=== PATIENT | female | born 1960 | race Caucasian/White ===

== ENCOUNTER → 2016-12-27 | Outpatient (CLI) | payer OTHER ==
--- NOTE | 2016-12-27 15:58 | BD ---
EXAMINATION TYPE: MG DEXA axial skeleton. DATE OF EXAM: 12/27/2016 COMPARISON: NONE CLINICAL HISTORY: 56-year-old female postmenopausal Height: 60 Weight: 96.8 FRAX RISK QUESTIONS: Alcohol (3 or more units per day): NO Family History (Parent hip fracture): NO Glucocorticoids (More than 3mos): NO (Ex: prednisone, prednisolone, methylprednisolone, dexamethasone, and hydrocortisone). History of Fracture in Adulthood: NO Secondary Osteoporosis: 1. Type 1 Diabetes: NO 2. Hyperthyroidism: NO 3. Menopause before 45: NO 4. Malnutrition: NO 5. Chronic liver disease: NO Rheumatoid Arthritis: NO Current Tobacco Use: YES RISK FACTORS HISTORY OF: Hip Fracture (Right/Left): NO Spine Fracture: NO History of Wrist Fracture: NO Surgery to Spine/Hip(right/left)/Wrist (right/left): NO Family History of Osteoporosis: NO Active: YES Diet low in dairy products/other sources of calcium: YES Postmenopausal woman: AGE 52 Lost more than 2 inches in height since high school: NO Frequent falls: NO Poor Health: NO Hyperparathyroidism: NO Adrenal Insufficiency: NO MEDICATIONS: SYMBICORT Thyroid Medications: How Lon-20 YEARS Additional History: EXAM MEASUREMENTS: Bone mineral densitometry was performed using the [employer] System. Bone mineral density as measured about the Lumbar spine is: ----- L1-L4(G/cm2): 0.795 T Score Values are as follows: ----- L2: -3.7 ----- L3: -3.4 ----- L4: -2.6 ----- L1-L4: -3.2 Bone mineral density BASELINE Bone mineral density about the R hip (g/cm2): 0.599 Bone mineral density about the L hip (g/cm2): 0.611 T Score values are as follows: -----R Neck: -3.2 -----L Neck: -3.1 -----R Total: -3.9 -----L Total: -3.7 Bone mineral density BASELINE IMPRESSION: Osteoporosis (T Score less than -2.5) as noted by T Score values at the There is increased fracture risk and therapy is usually indicated based on age. Re-Screen 1-2 years. NOTE: T-SCORE=SD OF THE YOUNG ADULT MEAN.
--- NOTE | 2016-12-30 08:22 | MM ---
Reason for exam: screening (asymptomatic). Last mammogram was performed 11 years and 4 months ago. History: Patient is postmenopausal. Physical Findings: A clinical breast exam by your physician is recommended on an annual basis and results should be correlated with mammographic findings. MG Screening Mammo w CAD Bilateral CC and MLO view(s) were taken. Prior study comparison: August 12, 2005, bilateral screening mammogram w/CAD. The breast tissue is extremely dense which could obscure a lesion on mammography. Benign calcifications. There is no discrete abnormality. No significant changes when compared with prior studies. ASSESSMENT: Benign, BI-RAD 2 RECOMMENDATION: Routine screening mammogram of both breasts in 1 year.
== END | disposition home or self-care (01) ==
LOC: RADMAMWWP 09:23
PROVIDERS: ATTEND Family Medicine
DX: Z12.31 Encounter for screening mammogram for malignant neoplasm of breast (principal); M81.0 Age-related osteoporosis without current pathological fracture; Z78.0 Asymptomatic menopausal state
CPT/HCPCS: 77080; G0202

== ENCOUNTER → 2018-01-05 | Outpatient (CLI) | payer OTHER ==
--- NOTE | 2018-01-07 11:04 | MM ---
Reason for exam: screening (asymptomatic). Last mammogram was performed 1 year ago. History: Patient is postmenopausal. Physical Findings: A clinical breast exam by your physician is recommended on an annual basis and results should be correlated with mammographic findings. MG 3D Screening Mammo W/Cad Bilateral CC and MLO view(s) were taken. Prior study comparison: December 27, 2016, bilateral MG screening mammo w CAD. August 12, 2005, bilateral screening mammogram w/CAD. The breast tissue is extremely dense which could obscure a lesion on mammography. No suspicious abnormality. No significant changes when compared with prior studies. ASSESSMENT: Negative, BI-RAD 1 RECOMMENDATION: Routine screening mammogram of both breasts in 1 year.
== END | disposition home or self-care (01) ==
LOC: RADMAMWWP 12:56
PROVIDERS: ATTEND Family Medicine
DX: Z12.31 Encounter for screening mammogram for malignant neoplasm of breast (principal)
CPT/HCPCS: 77063; 77067

== ENCOUNTER → 2019-01-26 | Outpatient (CLI) | payer OTHER ==
--- NOTE | 2019-01-28 09:57 | MM ---
Reason for exam: screening (asymptomatic). Last mammogram was performed 1 year and 1 month ago. History: Patient is postmenopausal. Physical Findings: A clinical breast exam by your physician is recommended on an annual basis and results should be correlated with mammographic findings. MG 3D Screening Mammo W/Cad Bilateral CC and MLO view(s) were taken. Prior study comparison: January 05, 2018, bilateral MG 3d screening mammo w/cad. December 27, 2016, bilateral MG screening mammo w CAD. The breast tissue is extremely dense which could obscure a lesion on mammography. Benign appearing vascular calcifications. No suspicious abnormality. No significant changes when compared with prior studies. ASSESSMENT: Benign, BI-RAD 2 RECOMMENDATION: Routine screening mammogram of both breasts in 1 year.
== END | disposition home or self-care (01) ==
LOC: RADMAMWWP 15:01
PROVIDERS: ATTEND Family Medicine
DX: Z12.31 Encounter for screening mammogram for malignant neoplasm of breast (principal)
CPT/HCPCS: 77063; 77067

== ENCOUNTER → 2022-03-07 | Outpatient (CLI) | payer OTHER ==
--- NOTE | 2022-03-08 07:56 | MM ---
Reason for Exam: Screening (asymptomatic). Last mammogram was performed 3 year(s) and 1 month(s) ago. Patient History: Menarche at age 12. First Full-Term at age 26. Postmenopausal. Risk Values: Jenni 5 year model risk: 1.7%. NCI Lifetime model risk: 7.7%. Prior Study Comparison: 12/27/2016 Bilateral Screening Mammogram, [facility]. 01/05/2018 Bilateral Screening Mammogram, [facility]. 01/26/2019 Bilateral Screening Mammogram, [facility]. Tissue Density: The breast tissue is heterogeneously dense. This may lower the sensitivity of mammography. Findings: Analyzed By CAD. New nodular density far posterior left MLO view 5.4 cm from the nipple not confirmed on the CC view. Additional views are recommended. Vascular calcifications noted bilaterally. Overall Assessment: Incomplete: need additional imaging evaluation, BI-RAD 0 Management: Diagnostic Mammogram of the left breast. A clinical breast exam by your physician is recommended on an annual basis and results should be correlated with mammographic findings. Electronically signed and approved by: Ranjit Mccabe M.D. Radiologis
== END | disposition home or self-care (01) ==
LOC: RADMAMWWP 16:26
PROVIDERS: ATTEND Family Medicine
DX: Z12.31 Encounter for screening mammogram for malignant neoplasm of breast (principal); Z78.0 Asymptomatic menopausal state
CPT/HCPCS: 77063; 77067

== ENCOUNTER → 2022-03-12 | Outpatient (CLI) | payer OTHER ==
--- NOTE | 2022-03-12 13:04 | MM ---
Reason for Exam: Additional evaluation requested from abnormal screening. Last screening mammogram was performed less than 1 month ago. Patient History: Menarche at age 12. First Full-Term at age 26. Postmenopausal. Risk Values: Jenni 5 year model risk: 1.7%. NCI Lifetime model risk: 7.7%. Prior Study Comparison: 01/05/2018 Bilateral Screening Mammogram, [facility]. 01/26/2019 Bilateral Screening Mammogram, [facility]. 03/07/2022 Bilateral MG 3D screening mammo w/cad, [facility]. Tissue Density: Left: The breast tissue is extremely dense which could obscure a lesion on mammography. Findings: Analyzed By CAD. Nodular density persists although is partially viewed on the additional spot images. Ultrasound is advised. Overall Assessment: Incomplete: need additional imaging evaluation, BI-RAD 0 Management: Diagnostic Breast Ultrasound of the left breast. A clinical breast exam by your physician is recommended on an annual basis and results should be correlated with mammographic findings. This exam should not preclude additional follow-up of suspicious palpable abnormalities. Results were given to the patient verbally at the time of exam. Electronically signed and approved by: Ranjit Mccabe M.D. Radiologis
--- NOTE | 2022-03-12 14:58 | USB ---
Reason for Exam: Additional evaluation requested from abnormal screening. Patient History: Menarche at age 12. First Full-Term at age 26. Postmenopausal. Risk Values: Jenni 5 year model risk: 1.7%. NCI Lifetime model risk: 7.7%. Technique: Method: Targeted. Prior Study Comparison: 01/05/2018 Bilateral Screening Mammogram, [facility]. 01/26/2019 Bilateral Screening Mammogram, [facility]. 03/07/2022 Bilateral MG 3D screening mammo w/cad, [facility]. Findings: The upper outer quadrant of the left breast, the axilla of the left breast and the retroareolar of the left breast were scanned. No solid or cystic masses are identified.. Overall Assessment: Negative, BI-RAD 1 Management: Screening Mammogram of both breasts in 1 year. A clinical breast exam by your physician is recommended on an annual basis and results should be correlated with mammographic findings. Electronically signed and approved by: Ranjit Mccabe M.D. Radiologis
== END | disposition home or self-care (01) ==
LOC: RADMAMWWP 12:34
PROVIDERS: ATTEND Family Medicine
DX: R92.8 Other abnormal and inconclusive findings on diagnostic imaging of breast (principal)
CPT/HCPCS: 77065; 76642; G0279; 77061

== ENCOUNTER 2022-04-13 11:01 | Emergency (ER) | payer OTHER ==
[2022-04-13 11:15] VITALS: TEMP 98.4
--- NOTE | 2022-04-13 11:26 | ED ---
Upper Extremity HPI - General Chief Complaint: Extremity Injury, Upper Stated Complaint: lt wrist injury Time Seen by Provider: 04/13/22 11:09 Source: patient, RN notes reviewed Mode of arrival: ambulatory Limitations: no limitations - History of Present Illness Initial Comments: 61-year-old female presents emergency from chief complaint of trip and fall. Patient states she tripped over her dog stepped last night states that she fell onto her left wrist. No head injury or loss conscious. Patient is right-hand dominant commands left wrist pain worse with any movement patient states that she has not one morning for the pain states she has not taken any prior to hear she does complain of mild swelling no paresthesias. - Related Data Allergies Allergy/AdvReac Type Severity Reaction Status Date / Time No Known Allergies Allergy Verified 04/13/22 11:14 Review of Systems ROS Statement: Those systems with pertinent positive or pertinent negative responses have been documented in the HPI. ROS Other: All systems not noted in ROS Statement are negative. Past Medical History Past Medical History: Asthma, COPD History of Any Multi-Drug Resistant Organisms: None Reported Past Surgical History: No Surgical Hx Reported Past Psychological History: No Psychological Hx Reported Smoking Status: Current every day smoker Past Alcohol Use History: None Reported Past Drug Use History: None Reported General Exam Limitations: no limitations General appearance: alert, in no apparent distress Head exam: Present: atraumatic, normocephalic, normal inspection Respiratory exam: Present: normal lung sounds bilaterally. Absent: respiratory distress, wheezes, rales, rhonchi, stridor Cardiovascular Exam: Present: regular rate, normal rhythm, normal heart sounds. Absent: systolic murmur, diastolic murmur, rubs, gallop, clicks Extremities exam: Present: other (Left wrist there is mild tenderness of the distal radius and ulna, neurovascular intact with cap refill less than 2 seconds pain with range of motion no proximal forearm tenderness) Course Vital Signs 04/13/22 04/13/22 11:11 12:29 Temperature 98.4 F Pulse Rate 93 68 Respiratory 20 16 Rate Blood Pressure 151/84 135/78 O2 Sat by Pulse 93 L 96 Oximetry - Reevaluation(s) Reevaluation #1: 04/13/22 11:24 Patient's declines pain meds. Medical Decision Making - Medical Decision Making X-ray does not show definite fracture though patient has some snuffbox tenderness. Patient was splinted to follow-up with orthopedics. Disposition Clinical Impression: Left wrist injury, Fracture of scaphoid Disposition: HOME SELF-CARE Condition: Stable Instructions (If sedation given, give patient instructions): Suspected Fracture (ED) Additional Instructions: Please return to the Emergency Department if symptoms worsen or any other concerns. Is patient prescribed a controlled substance at d/c from ED?: No Referrals: Errol Caldera MD [Primary Care Provider] - 1-2 days Valerie Bonds DO [Doctor of Osteopathic Medicine] - 1-2 days Time of Disposition: 13:37
[2022-04-13 12:31] VITALS: PULSE 68; RESP 16
[2022-04-13 13:50] VITALS: BP 110/60
--- NOTE | 2022-04-13 14:29 | XR ---
EXAMINATION TYPE: TEMPORARY DATE OF EXAM: 04/13/2022 COMPARISON: None HISTORY: Pain from fall TECHNIQUE: 4 view left wrist FINDINGS: No acute fractures or dislocations are evident. There may be an old avulsion at the mid uln ar styloid. Secondary ossification center could be present. Follow-up studies can be performed 7-10 days from acute trauma for continued pain. If there is pain a nd snuffbox, nuclear medicine bone scan could be performed. IMPRESSION: 1. No acute osseous abnormality left wrist. Follow-up as clinically indicated.
== END 2022-04-13 13:49 | disposition home or self-care (01) ==
LOC: EC 11:01
DX: S62.002A Unspecified fracture of navicular [scaphoid] bone of left wrist, initial encounter for closed fracture (principal); J45.909 Unspecified asthma, uncomplicated; J44.9 Chronic obstructive pulmonary disease, unspecified; F17.200 Nicotine dependence, unspecified, uncomplicated; W01.0XXA Fall on same level from slipping, tripping and stumbling without subsequent striking against object, initial encounter
CPT/HCPCS: 99284

== ENCOUNTER 2022-04-21 17:24 | Inpatient (IN) | payer OTHER ==
--- NOTE | 2022-04-21 17:45 | ED ---
SOB HPI - General Chief Complaint: Shortness of Breath Stated Complaint: FLOYD Time Seen by Provider: 04/21/22 17:30 Source: patient Mode of arrival: wheelchair Limitations: no limitations - History of Present Illness Initial Comments: This patient is 61-year-old woman presenting to have evaluation for shortness of breath. She has been having worsening of her usual COPD symptoms going back 2 days now. She has not noted fever or chills. She has not noted a change in sputum. She has occasional nonproductive cough. No hemoptysis. Patient does have some upper chest discomfort. She has not noted associated nausea, vomiting, diaphoresis, palpitations or syncope. Patient states that she tried using her home inhaled medication but just wasn't providing any relief. She does not use home oxygen MD Complaint: shortness of breath, cough -: days(s) Consistency: constant Improves With: nothing Worsens With: nothing Known History Of: COPD Associated Symptoms: denies other symptoms - Related Data Home Medications Medication Instructions Recorded Confirmed Albuterol Sulfate [Proair Hfa] 2 puff INHALATION RT-Q6H PRN 04/21/22 04/21/22 Ergocalciferol (Vitamin D2) 1,250 mcg PO QMONTHLY 04/21/22 04/21/22 [Drisdol (50,000 Iu)] Fluticasone/Umeclidin/Vilanter 1 puff INHALATION RT-DAILY 04/21/22 04/21/22 [Trelegy Ellipta 100-62.5-25] Ibuprofen [Motrin] 800 mg PO QID PRN 04/21/22 04/21/22 Levothyroxine Sodium [Synthroid] 137 mcg PO DAILY 04/21/22 04/21/22 Allergies Allergy/AdvReac Type Severity Reaction Status Date / Time No Known Allergies Allergy Verified 04/21/22 18:57 Review of Systems ROS Statement: Those systems with pertinent positive or pertinent negative responses have been documented in the HPI. ROS Other: All systems not noted in ROS Statement are negative. Constitutional: Denies: fever, chills, weakness Respiratory: Reports: cough, dyspnea, wheezes. Denies: hemoptysis, stridor Cardiovascular: Reports: chest pain. Denies: palpitations, orthopnea, edema, syncope Gastrointestinal: Denies: abdominal pain, nausea, vomiting, diarrhea Genitourinary: Denies: dysuria, hematuria Musculoskeletal: Denies: back pain Skin: Denies: rash Neurological: Denies: headache, weakness, numbness Past Medical History Past Medical History: Asthma, COPD History of Any Multi-Drug Resistant Organisms: None Reported Past Surgical History: No Surgical Hx Reported Past Psychological History: No Psychological Hx Reported Smoking Status: Current every day smoker Past Alcohol Use History: None Reported Past Drug Use History: None Reported General Exam Limitations: no limitations General appearance: alert, in distress Head exam: Present: atraumatic, normocephalic Eye exam: Present: normal appearance. Absent: scleral icterus, conjunctival injection Neck exam: Present: normal inspection Respiratory exam: Present: respiratory distress, wheezes, accessory muscle use, decreased breath sounds. Absent: rales, rhonchi, stridor, chest wall tenderness Cardiovascular Exam: Present: normal rhythm, tachycardia, normal heart sounds. Absent: systolic murmur, diastolic murmur, rubs, gallop GI/Abdominal exam: Present: soft. Absent: distended, tenderness, guarding, rebound, rigid, mass Extremities exam: Present: normal inspection, normal capillary refill. Absent: pedal edema, calf tenderness Back exam: Present: normal inspection. Absent: CVA tenderness (R), CVA tenderness (L) Neurological exam: Present: alert Skin exam: Present: warm, dry, intact, normal color. Absent: rash Course Vital Signs 04/21/22 04/21/22 04/21/22 17:27 18:22 18:30 Temperature 97 F L Pulse Rate 123 H 115 H Respiratory 32 H 20 Rate Blood Pressure 107/68 O2 Sat by Pulse 88 L 95 Oximetry 04/21/22 04/21/22 04/21/22 18:38 18:51 20:24 Temperature Pulse Rate 118 H 115 H 114 H Respiratory 18 24 19 Rate Blood Pressure 96/69 96/64 O2 Sat by Pulse 97 96 Oximetry 04/21/22 04/21/22 22:30 23:05 Temperature Pulse Rate 112 H 112 H Respiratory 20 18 Rate Blood Pressure 94/64 91/71 O2 Sat by Pulse 100 99 Oximetry Medical Decision Making - Medical Decision Making Patient's 61-year-old woman presenting with dyspnea which appears to be due to a combination of factors that include exacerbation of COPD as well as right-sided spontaneous pneumothorax. Case is discussed with Dr. Polanco, covering Pulmonology service and patient will be admitted with consultations to CT surgery and cardiology as well. - Lab Data Result diagrams: 04/21/22 17:51 04/21/22 17:51 Lab Results 04/21/22 04/21/22 04/21/22 Range/Units 17:51 17:51 17:51 WBC 15.8 H (3.8-10.6) k/uL RBC 4.95 (3.80-5.40) m/uL Hgb 15.3 (11.4-16.0) gm/dL Hct 45.9 (34.0-46.0) % MCV 92.8 (80.0-100.0) fL MCH 30.9 (25.0-35.0) pg MCHC 33.3 (31.0-37.0) g/dL RDW 12.8 (11.5-15.5) % Plt Count 224 (150-450) k/uL MPV 9.4 Neutrophils % 86 % Lymphocytes % 7 % Monocytes % 5 % Eosinophils % 1 % Basophils % 0 % Neutrophils # 13.5 H (1.3-7.7) k/uL Lymphocytes # 1.1 (1.0-4.8) k/uL Monocytes # 0.8 (0-1.0) k/uL Eosinophils # 0.1 (0-0.7) k/uL Basophils # 0.1 (0-0.2) k/uL PT 10.4 (9.0-12.0) sec INR 0.9 (<1.2) APTT 23.8 (22.0-30.0) sec D-Dimer 1.14 H (<0.60) mg/L FEU VBG pH (7.31-7.41) VBG pCO2 (37-51) mmHg VBG HCO3 (24-28) mmol/L Sodium 136 L (137-145) mmol/L Potassium 4.8 (3.5-5.1) mmol/L Chloride 96 L (98-107) mmol/L Carbon Dioxide 31 H (22-30) mmol/L Anion Gap 9 mmol/L BUN 9 (7-17) mg/dL Creatinine 0.59 (0.52-1.04) mg/dL Est GFR (CKD-EPI)AfAm >90 (>60 ml/min/1.73 sqM) Est GFR (CKD-EPI)NonAf >90 (>60 ml/min/1.73 sqM) Glucose 220 H (74-99) mg/dL Lactic Ac Sepsis Rflx Plasma Lactic Acid Jacobo (0.7-2.0) mmol/L Calcium 8.6 (8.4-10.2) mg/dL Magnesium 1.8 (1.6-2.3) mg/dL Total Bilirubin 0.8 (0.2-1.3) mg/dL AST 61 H (14-36) U/L ALT 47 H (4-34) U/L Alkaline Phosphatase 99 (38-126) U/L Troponin I (0.000-0.034) ng/mL NT-Pro-B Natriuret Pep pg/mL Total Protein 7.2 (6.3-8.2) g/dL Albumin 4.4 (3.5-5.0) g/dL 04/21/22 04/21/22 04/21/22 Range/Units 17:51 17:51 17:51 WBC (3.8-10.6) k/uL RBC (3.80-5.40) m/uL Hgb (11.4-16.0) gm/dL Hct (34.0-46.0) % MCV (80.0-100.0) fL MCH (25.0-35.0) pg MCHC (31.0-37.0) g/dL RDW (11.5-15.5) % Plt Count (150-450) k/uL MPV Neutrophils % % Lymphocytes % % Monocytes % % Eosinophils % % Basophils % % Neutrophils # (1.3-7.7) k/uL Lymphocytes # (1.0-4.8) k/uL Monocytes # (0-1.0) k/uL Eosinophils # (0-0.7) k/uL Basophils # (0-0.2) k/uL PT (9.0-12.0) sec INR (<1.2) APTT (22.0-30.0) sec D-Dimer (<0.60) mg/L FEU VBG pH (7.31-7.41) VBG pCO2 (37-51) mmHg VBG HCO3 (24-28) mmol/L Sodium (137-145) mmol/L Potassium (3.5-5.1) mmol/L Chloride (98-107) mmol/L Carbon Dioxide (22-30) mmol/L Anion Gap mmol/L BUN (7-17) mg/dL Creatinine (0.52-1.04) mg/dL Est GFR (CKD-EPI)AfAm (>60 ml/min/1.73 sqM) Est GFR (CKD-EPI)NonAf (>60 ml/min/1.73 sqM) Glucose (74-99) mg/dL Lactic Ac Sepsis Rflx Plasma Lactic Acid Jacobo 3.5 H* (0.7-2.0) mmol/L Calcium (8.4-10.2) mg/dL Magnesium (1.6-2.3) mg/dL Total Bilirubin (0.2-1.3) mg/dL AST (14-36) U/L ALT (4-34) U/L Alkaline Phosphatase (38-126) U/L Troponin I 0.826 H* (0.000-0.034) ng/mL NT-Pro-B Natriuret Pep 5770 pg/mL Total Protein (6.3-8.2) g/dL Albumin (3.5-5.0) g/dL 04/21/22 04/21/22 Range/Units 18:50 19:18 WBC (3.8-10.6) k/uL RBC (3.80-5.40) m/uL Hgb (11.4-16.0) gm/dL Hct (34.0-46.0) % MCV (80.0-100.0) fL MCH (25.0-35.0) pg MCHC (31.0-37.0) g/dL RDW (11.5-15.5) % Plt Count (150-450) k/uL MPV Neutrophils % % Lymphocytes % % Monocytes % % Eosinophils % % Basophils % % Neutrophils # (1.3-7.7) k/uL Lymphocytes # (1.0-4.8) k/uL Monocytes # (0-1.0) k/uL Eosinophils # (0-0.7) k/uL Basophils # (0-0.2) k/uL PT (9.0-12.0) sec INR (<1.2) APTT (22.0-30.0) sec D-Dimer (<0.60) mg/L FEU VBG pH 7.40 (7.31-7.41) VBG pCO2 49 (37-51) mmHg VBG HCO3 30 H (24-28) mmol/L Sodium (137-145) mmol/L Potassium (3.5-5.1) mmol/L Chloride (98-107) mmol/L Carbon Dioxide (22-30) mmol/L Anion Gap mmol/L BUN (7-17) mg/dL Creatinine (0.52-1.04) mg/dL Est GFR (CKD-EPI)AfAm (>60 ml/min/1.73 sqM) Est GFR (CKD-EPI)NonAf (>60 ml/min/1.73 sqM) Glucose (74-99) mg/dL Lactic Ac Sepsis Rflx Y Plasma Lactic Acid Jacobo (0.7-2.0) mmol/L Calcium (8.4-10.2) mg/dL Magnesium (1.6-2.3) mg/dL Total Bilirubin (0.2-1.3) mg/dL AST (14-36) U/L ALT (4-34) U/L Alkaline Phosphatase (38-126) U/L Troponin I (0.000-0.034) ng/mL NT-Pro-B Natriuret Pep pg/mL Total Protein (6.3-8.2) g/dL Albumin (3.5-5.0) g/dL - EKG Data -: EKG Interpreted by Me EKG shows normal: sinus rhythm, axis (Normal), intervals (Normal) Rate: tachycardia (Rate 111 bpm) Interpretation: other (Possible old anteroseptal infarct.) Critical Care Time Critical Care Time: Yes (35 minutes) Disposition Clinical Impression: Spontaneous pneumothorax, COPD exacerbation, NSTEMI (non-ST elevated myocardial infarction), Lactic acidosis Disposition: ADMITTED IP TO THIS [facility] Condition: Serious Is patient prescribed a controlled substance at d/c from ED?: No
[2022-04-21] MEDS ORDERED: IPRATROPIUM-ALBUTEROL 3 ML NEB INHALATION STA (17:52)
[2022-04-21] MEDS ORDERED: predniSONE 20 MG TAB PO STA (17:52)
[2022-04-21 18:11] LABS: Basophils # (A) 0.1 k/uL (0-0.2); Basophils % (A) 0 %; Eosinophils # (A) 0.1 k/uL (0-0.7); Eosinophils % (A) 1 %; HCT 45.9 % (34.0-46.0); HGB 15.3 gm/dL (11.4-16.0); Lymphocytes # (A) 1.1 k/uL (1.0-4.8); Lymphocytes % (A) 7 %; MCH 30.9 pg (25.0-35.0); MCHC 33.3 g/dL (31.0-37.0); MCV 92.8 fL (80.0-100.0); Mean Platelet Volume 9.4; Monocytes # (A) 0.8 k/uL (0-1.0); Monocytes % (A) 5 %; Neutrophils # (A) 13.5 k/uL (1.3-7.7); Neutrophils % (A) 86 %; Platelet Count 224 k/uL (150-450); RBC 4.95 m/uL (3.80-5.40); RDW 12.8 % (11.5-15.5); WBC 15.8 k/uL (3.8-10.6)
[2022-04-21 18:25] LABS: ALT 47 U/L (4-34); AST 61 U/L (14-36); African American GFR (CKD) >90 (>60 ml/min/1.73 sqM); Albumin 4.4 g/dL (3.5-5.0); Alkaline Phosphatase 99 U/L (38-126); Anion Gap 9 mmol/L; Blood Urea Nitrogen 9 mg/dL (7-17); Calcium 8.6 mg/dL (8.4-10.2); Carbon Dioxide 31 mmol/L (22-30); Chloride 96 mmol/L (98-107); Glucose 220 mg/dL (74-99); Magnesium 1.8 mg/dL (1.6-2.3); Non-African American GFR(CKD) >90 (>60 ml/min/1.73 sqM); Potassium 4.8 mmol/L (3.5-5.1); Sodium 136 mmol/L (137-145); Total Bilirubin 0.8 mg/dL (0.2-1.3); Total Protein 7.2 g/dL (6.3-8.2)
--- NOTE | 2022-04-21 18:46 | XR ---
EXAMINATION TYPE: XR chest 2V DATE OF EXAM: 04/21/2022 6:28 PM COMPARISON: No relevant priors TECHNIQUE: XR chest 2V . CLINICAL INDICATION:Female, 61 years old with history of difficulty breathing; FINDINGS: Lungs/Pleura: There is flattening of the diaphragm with increased lucency of the lungs. No evidence o f pneumothorax, pleural effusion or focal consolidation. 3 mm nodule projects over the right upper lo be. Pulmonary vascularity: Unremarkable. Heart/mediastinum: Cardiomediastinal silhouette is unremarkable. Musculoskeletal: Multiple level degenerative disc disease changes seen throughout the spine. IMPRESSION: 1. Emphysematous changes. No focal airspace consolidation. 2. Suspected 3 mm pulmonary nodule in the right lung, consider further evaluation with non-emergent C T chest.
[2022-04-21 18:48] LABS: INR 0.9 (<1.2); Partial Thromboplastin Time 23.8 sec (22.0-30.0); Prothrombin Time 10.4 sec (9.0-12.0)
[2022-04-21] MEDS ORDERED: AZITHROMYCIN 500 MG in SODIUM CHLORIDE 0.9% 250 ML IVPB STA (19:14)
[2022-04-21] MEDS ORDERED: SODIUM CHLORIDE 0.9% 500 ML 500 ML IV STA (19:15)
[2022-04-21] MEDS ORDERED: SODIUM CHLORIDE 0.9% 1,000 ML IV STA (19:15)
[2022-04-21 19:35] LABS: VBG PH 7.4 (7.31-7.41)
--- NOTE | 2022-04-21 20:00 | CT ---
EXAMINATION TYPE: CT chest angio for PE CT DLP: 172 mGycm, Automated exposure control for dose reduction was used. DATE OF EXAM: 04/21/2022 7:46 PM COMPARISON: Chest x-ray 04/21/2022 CLINICAL INDICATION:Female, 61 years old with history of dyspnea, possible PE; pe TECHNIQUE/CONTRAST: CTA scan of the thorax is performed with IV Contrast, patient injected with 80 mL of Isovue 370, pulm onary embolism protocol. MIP images are created and reviewed. FINDINGS: Pulmonary Artery: There is no evidence for a filling defect within the pulmonary vasculature to sugge st acute pulmonary embolism. The pulmonary artery is of normal size. Lungs/Pleura: Small right pneumothorax (less than 20%). Pleural displacement of approximately 9 mm at the right lung apex. Moderate to severe emphysematous changes. Numerous apical bullae and blebs are present bilaterally. No focal airspace consolidations. Airway: Large airways are patent. Heart: Heart is within normal limits for size.. Vasculature: No evidence of aortic aneurysm. Mediastinum: No gross evidence of adenopathy. Musculoskeletal: Mild degenerative disc disease changes are present throughout the thoracolumbar spin e. Soft Tissues: Unremarkable. Lower neck: No significant findings. Upper Abdomen: No significant findings. Notification: Critical findings were conveyed to Dr. Boucher by Dr. Pacheco Metz at 7:57pm on 04/21/22. IMPRESSION: 1. No evidence of pulmonary embolism. 2. Small right pneumothorax. No evidence for tension physiology. 3. Moderate to severe emphysematous changes bilaterally.
[2022-04-21] MEDS ORDERED: MORPHINE SULFATE 4 MG/ML SYRINGE IV STA (21:30)
[2022-04-21] MEDS ORDERED: LIDOCAINE 1% INJ 10MG/ML (10 ML MDV) SQ STA (21:30)
[2022-04-21] MEDS ORDERED: NALOXONE 0.4 MG/ML 1 ML VIAL IVP PRN (21:41)
[2022-04-21] MEDS ORDERED: ACETAMINOPHEN TAB 325 MG TAB PO PRN (21:41)
[2022-04-21] MEDS ORDERED: IPRATROPIUM-ALBUTEROL 3 ML NEB INHALATION PRN (23:07)
[2022-04-22] MEDS ORDERED: HEPARIN SODIUM,PORCINE 2,500 UNIT in SODIUM CHLORIDE 0.9% 250 ML IRRIGATION PRN (07:00)
[2022-04-22] MEDS ORDERED: HEPARIN SODIUM,PORCINE 10,000 UNIT in SODIUM CHLORIDE 0.9% 1,000 ML IRRIGATION PRN (07:00)
[2022-04-22] MEDS: IPRATROPIUM-ALBUTEROL 3 ML NEB INHALATION SCH ×4 (08:27→20:02)
[2022-04-22] MEDS ORDERED: ALPRAZolam 0.5 MG TAB PO PRN (09:28)
[2022-04-22] MEDS ORDERED: ALPRAZolam 0.25 MG TAB PO PRN (09:28)
[2022-04-22] MEDS ORDERED: NITROGLYCERIN SL TABS 0.4 MG TAB SUBLINGUAL PRN (09:28)
[2022-04-22] MEDS ORDERED: ASPIRIN 325 MG TAB PO STA (09:28)
[2022-04-22] MEDS ORDERED: ATORVASTATIN 80 MG TAB PO STA (09:28)
--- NOTE | 2022-04-22 09:28 | XR ---
EXAMINATION TYPE: XR chest 1V portable DATE OF EXAM: 04/22/2022 CLINICAL HISTORY: Right-sided pneumothorax progress study. TECHNIQUE: Single AP portable upright view of the chest is obtained. COMPARISON: Chest x-ray and CTA chest from one day earlier FINDINGS: Moderate to advanced underlying emphysematous change redemonstrated. Stable small right ap ical pneumothorax estimated near 10%. No new focal airspace opacity, pleural effusion, or pneumothora x seen bilaterally. No mediastinal shift. Cardiac silhouette size stable and within normal limits. Os seous structures are intact. IMPRESSION: Chronic emphysematous change with stable small right apical pneumothorax. No new acute pu lmonary process. Small areas of consolidation in the right lung on CT axial image 41 and 102 less wel l-seen on plain films.
[2022-04-22] MEDS ORDERED: VERAPAMIL 2.5 MG/ML 2 ML AMP ONE (09:44)
[2022-04-22] MEDS: AZITHROMYCIN 500 MG TAB PO SCH (09:45)
[2022-04-22] MEDS: predniSONE 20 MG TAB PO SCH (09:45)
[2022-04-22] MEDS: SODIUM CHLORIDE 0.9% 1,000 ML in EMPTY BAG 1 BAG IV SCH (09:46)
[2022-04-22] MEDS ORDERED: HEPARIN SODIUM 1,000 UN/ML (10ML VL) ONE (10:17)
[2022-04-22] MEDS ORDERED: fentaNYL (PF) 50 MCG/ML 2 ML AMP ONE (10:17)
[2022-04-22] MEDS ORDERED: IV FLUID CONTINUATION 1,000 ML IV ONE (10:19)
[2022-04-22 10:21] VITALS: BMI 16.4
[2022-04-22] MEDS ORDERED: fentaNYL (PF) 50 MCG/ML 2 ML AMP IV ONE (10:31)
[2022-04-22] MEDS ORDERED: MIDAZOLAM 2 MG/2 ML VIAL IV ONE (10:31)
[2022-04-22] MEDS ORDERED: LIDOCAINE 1% INJ 10MG/ML (30 ML VIAL-PF) SQ ONE (10:31)
[2022-04-22] MEDS ORDERED: VERAPAMIL SYRINGE (5 MG/10 ML) INTRAARTER ONE (10:32)
[2022-04-22] MEDS ORDERED: NALOXONE 0.4 MG/ML 1 ML VIAL ONE (10:38)
[2022-04-22] MEDS ORDERED: FLUMAZENIL 0.1 MG/ML 5 ML VIAL IVP ONE ×2 (10:39→10:42)
[2022-04-22] MEDS ORDERED: PHENYLEPHRINE-0.9% NACL SYG 1,000 MCG/10 ML SYRINGE IV ONE (10:39)
[2022-04-22] MEDS ORDERED: NALOXONE 0.4 MG/ML 1 ML VIAL IV ONE (10:40)
--- NOTE | 2022-04-22 10:40 | P.GSCN ---
History of Present Illness Consult date: 04/22/22 Reason for Consult: Spontaneous right-sided pneumothorax Requesting physician: Aníbal Boucher History of present illness: This is a 61-year-old female patient who follows on an outpatient basis with Dr. Caldera for her primary care service. She has a past medical history significant for chronic obstructive pulmonary disease, thyroid disorder, asthma, chronic ongoing tobacco dependence smokes about 1 pack of cigarettes a day, osteoarthritis, recent fall from standing with injury to her left wrist and obsessive-compulsive disorder. She presented to the emergency department here at [facility] yesterday 04/21/2022 with complaints of progressive shortness of breath which came on acutely on 04/20/2022. She reports she also had some right shoulder discomfort when the shortness of breath came on. She denies any complaints of nausea, vomiting, fever, chills, palpitations, headache, hemoptysis, hematemesis, lightheadedness, presyncope or syncope. She denies any home oxygen use, although reports she has a nebulizer machine at home in which she tried a treatment without relief. A 12-lead EKG was completed on admission which showed sinus tachycardia with a heart rate of 111 BPM. A chest x-ray was completed which demonstrated emphysematous changes, no focal airspace consolidation and a suspected 3 mm nodule in the right lung. Due to the patient's presenting symptoms and findings of the pulmonary nodule. CTA of the chest was completed per PE protocol which demonstrated no evidence of pulmonary embolism, a small right sided pneumothorax with no evidence for tension physiology and moderate to severe emphysematous changes bilaterally. Initial laboratory results showed a WBC count of 15.8, hemoglobin 15.3, hematocrit 45.9, platelets 224, PT 10.4, INR 0.9, PTT 23.8, d-dimer 1.14, sodium 136, potassium 4.8, chloride 96, CO2 31, BUN 9, creatinine 0.59, plasma lactic acid venous 3.5, calcium 8.6, magnesium 1.8, AST 61, ALT 47, proBNP 5770 and an elevated troponin of 0.826 with a repeat troponin trending down at 0.799. Subsequently, due to the findings on the CTA of the chest for spontaneous right- sided pneumothorax a consult was placed to cardiothoracic surgery for further evaluation and treatment recommendations. Review of Systems A 14 point review of systems was completed and was negative except as mentioned in the HPI. Past Medical History Past Medical History: Asthma, COPD, Osteoarthritis (OA), Thyroid Disorder History of Any Multi-Drug Resistant Organisms: None Reported Past Surgical History: Tonsillectomy Additional Psychological History / Comment(s): OCD Smoking Status: Current every day smoker Past Alcohol Use History: Occasional Additional Past Alcohol Use History / Comment(s): Drinks 1 beer per week. Past Drug Use History: None Reported Medications and Allergies Home Medications Medication Instructions Recorded Confirmed Type Albuterol Sulfate [Proair Hfa] 2 puff INHALATION RT-Q6H PRN 04/21/22 04/21/22 History Ergocalciferol (Vitamin D2) 1,250 mcg PO QMONTHLY 04/21/22 04/21/22 History [Drisdol (50,000 Iu)] Fluticasone/Umeclidin/Vilanter 1 puff INHALATION RT-DAILY 04/21/22 04/21/22 History [Trelegy Ellipta 100-62.5-25] Ibuprofen [Motrin] 800 mg PO QID PRN 04/21/22 04/21/22 History Levothyroxine Sodium [Synthroid] 137 mcg PO DAILY 04/21/22 04/21/22 History Aspirin 81 mg PO DAILY #100 tab 04/24/22 Rx Atorvastatin [Lipitor] 80 mg PO HS #30 tab 04/24/22 Rx Clopidogrel [Plavix] 75 mg PO DAILY #100 tab 04/24/22 Rx Metoprolol Succinate (ER) [Toprol 12.5 mg PO DAILY #60 tab 04/24/22 Rx XL] Nitroglycerin Sl Tabs [Nitrostat] 0.4 mg SUBLINGUAL Q5M PRN #25 tab 04/24/22 Rx lisinopriL [Zestril] 2.5 mg PO DAILY #30 tab 04/24/22 Rx Allergies Allergy/AdvReac Type Severity Reaction Status Date / Time No Known Allergies Allergy Verified 04/21/22 18:57 Surgical - Exam Vital Signs Temp Pulse Resp BP Pulse Ox 97 F L 123 H 32 H 107/68 88 L 04/21/22 17:27 04/21/22 17:27 04/21/22 17:27 04/21/22 17:27 04/21/22 17:27 - General no distress, no pain, cachectic - Eyes PERRL, normal ocular movement, no pale, no icteric - ENT normal pinna, normal nares, normal mucosa, no hearing loss, no congestion - Neck Neck is supple, no lymphadenopathy. no masses, no bruits, trachea midline, no venous distension - Respiratory Lungs sounds with expiratory wheezes throughout, diminished to her right lower lobe. No crackles or rhonchi. Respirations are symmetrical and nonlabored. Oxygen saturation are 98% on 3 L nasal cannula. - Cardiovascular Regular rhythm and rate. S1 and S2 present, negative for S3, gallop or murmur. No peripheral edema. - Abdomen Abdomen is soft, nontender and nondistended. Active bowel sounds present all 4, quadrants. No guarding or rigidity. No organomegaly appreciated. - Genitourinary Deferred - Rectum Deferred - Integumentary Skin is warm and dry. No clubbing or cyanosis is present. no rash, no growths, no abnormal pigmentation - Neurologic No focal deficits. normal coordination, normal sensation - Musculoskeletal Moves all 4 extremities with equally. Limited range of motion to her left wrist due to a recent injury and having a splint in place. - Psychiatric oriented to time, oriented to person, oriented to place, speech is normal, memory intact Results - Labs 04/23/22 09:55 04/23/22 09:55 Abnormal Lab Results - Last 24 Hours (Table) 04/21/22 04/21/22 04/21/22 Range/Units 17:51 17:51 17:51 WBC 15.8 H (3.8-10.6) k/uL Neutrophils # 13.5 H (1.3-7.7) k/uL D-Dimer 1.14 H (<0.60) mg/L FEU VBG HCO3 (24-28) mmol/L Sodium 136 L (137-145) mmol/L Chloride 96 L (98-107) mmol/L Carbon Dioxide 31 H (22-30) mmol/L Glucose 220 H (74-99) mg/dL Plasma Lactic Acid Jacobo (0.7-2.0) mmol/L AST 61 H (14-36) U/L ALT 47 H (4-34) U/L Troponin I (0.000-0.034) ng/mL 04/21/22 04/21/22 04/21/22 Range/Units 17:51 17:51 19:18 WBC (3.8-10.6) k/uL Neutrophils # (1.3-7.7) k/uL D-Dimer (<0.60) mg/L FEU VBG HCO3 30 H (24-28) mmol/L Sodium (137-145) mmol/L Chloride (98-107) mmol/L Carbon Dioxide (22-30) mmol/L Glucose (74-99) mg/dL Plasma Lactic Acid Jacobo 3.5 H* (0.7-2.0) mmol/L AST (14-36) U/L ALT (4-34) U/L Troponin I 0.826 H* (0.000-0.034) ng/mL 04/21/22 04/21/22 Range/Units 23:16 23:55 WBC (3.8-10.6) k/uL Neutrophils # (1.3-7.7) k/uL D-Dimer (<0.60) mg/L FEU VBG HCO3 (24-28) mmol/L Sodium (137-145) mmol/L Chloride (98-107) mmol/L Carbon Dioxide (22-30) mmol/L Glucose (74-99) mg/dL Plasma Lactic Acid Jacobo 2.3 H* (0.7-2.0) mmol/L AST (14-36) U/L ALT (4-34) U/L Troponin I 0.799 H* (0.000-0.034) ng/mL Diabetes panel 04/21/22 Range/Units 17:51 Sodium 136 L (137-145) mmol/L Potassium 4.8 (3.5-5.1) mmol/L Chloride 96 L (98-107) mmol/L Carbon Dioxide 31 H (22-30) mmol/L BUN 9 (7-17) mg/dL Creatinine 0.59 (0.52-1.04) mg/dL Glucose 220 H (74-99) mg/dL Calcium 8.6 (8.4-10.2) mg/dL AST 61 H (14-36) U/L ALT 47 H (4-34) U/L Alkaline Phosphatase 99 (38-126) U/L Total Protein 7.2 (6.3-8.2) g/dL Albumin 4.4 (3.5-5.0) g/dL Calcium panel 04/21/22 Range/Units 17:51 Calcium 8.6 (8.4-10.2) mg/dL Albumin 4.4 (3.5-5.0) g/dL Pituitary panel 04/21/22 Range/Units 17:51 Sodium 136 L (137-145) mmol/L Potassium 4.8 (3.5-5.1) mmol/L Chloride 96 L (98-107) mmol/L Carbon Dioxide 31 H (22-30) mmol/L BUN 9 (7-17) mg/dL Creatinine 0.59 (0.52-1.04) mg/dL Glucose 220 H (74-99) mg/dL Calcium 8.6 (8.4-10.2) mg/dL Adrenal panel 04/21/22 Range/Units 17:51 Sodium 136 L (137-145) mmol/L Potassium 4.8 (3.5-5.1) mmol/L Chloride 96 L (98-107) mmol/L Carbon Dioxide 31 H (22-30) mmol/L BUN 9 (7-17) mg/dL Creatinine 0.59 (0.52-1.04) mg/dL Glucose 220 H (74-99) mg/dL Calcium 8.6 (8.4-10.2) mg/dL Total Bilirubin 0.8 (0.2-1.3) mg/dL AST 61 H (14-36) U/L ALT 47 H (4-34) U/L Alkaline Phosphatase 99 (38-126) U/L Total Protein 7.2 (6.3-8.2) g/dL Albumin 4.4 (3.5-5.0) g/dL - Imaging Chest x-ray: report reviewed, image reviewed CT scan - chest: report reviewed, image reviewed EKG: image reviewed Assessment and Plan Assessment: 1. Spontaneous right-sided pneumothorax 2. Chronic obstructive pulmonary disease 3. Shortness of breath, likely secondary to above 4. History of asthma 5. Chronic ongoing tobacco dependence, smokes 1 pack of cigarettes daily 6. Thyroid disorder 7. Osteoarthritis 8. Obsessive-compulsive disorder 9. Recent fall from standing, with injury to her left wrist Plan: The patient was seen and examined at her bedside on the cardiac stepdown unit. Her chart diagnostics reviewed. Her case was discussed in detail with Dr. Kike De Santiago from cardiothoracic surgery. We will continue to monitor daily chest x- rays. X-ray from this morning shows an estimated 10% right-sided pneumothorax and the CTA of the chest showed a less than 20% right-sided pneumothorax. We will continue to monitor for pneumothorax resolution and continue to monitor for need for Thoravent or chest tube placement. We will order an incentive spirometry and encourage use 10 times every hour while awake. The importance of risk modification including smoking cessation has been discussed with the patient. More recommendations to follow based on patient's clinical course. Thank you for this consult and we look for to working with you in the care of this patient. have personally seen and examined the patient, performed the documentation and the assessment and plan as written. 30 minutes spent on the visit . Pradeep GUTIERREZ The patient is a 61 y/o female who presented to the hospital with shortness of breath. Workup revealed a spontaneous right sided PTX which is relatively small in size. She is currently symptom-free and saturating well on supplemental nasal cannula oxygen. This is the patient's first episode of spontaneous PTX. There is no plan for chest tube or surgical intervention at this time. We will continue to monitor closely and treat conservatively for now. If the PTX grows in size, then she may need a drain placed. We will continue to follow along with you and monitor serial CXRs. I have personally seen and examined the patient, reviewed the documentation and the assessment and plan as written. 45 minutes spent on the visit. Kike De Santiago M.D.
[2022-04-22] MEDS ORDERED: HEPARIN SODIUM 1,000 UN/ML (10ML VL) IV ONE (10:41)
[2022-04-22] MEDS ORDERED: IOPAMIDOL-370 100ML BTL INJ ONE (10:52)
--- NOTE | 2022-04-22 10:59 | P.CRDCN ---
History of Present Illness History of present illness: HISTORY OF PRESENTING ILLNESS This is a pleasant 61-year-old female past medical history significant for chronic nicotine dependence, hypothyroidism, COPD, asthma. She does not follow with a tank pumper. We have been asked to see in consultation for elevated troponin. Patient is sensitive emergency department with worsening shortness of breath. She states over the past 2 days her symptoms have worsened. However, yesterday specifically she was having worsening shortness of breath all day, worse with activity. She had left sided chest discomfort as well. She had associated diaphoresis. Her pain was non-radiating. No specific alleviating factors. Aggravated by activity. Denies any nausea, vomiting, palpations, lightheadedness, dizziness, syncope or near syncope. She denies a history of CAD, IL, stroke, diabetes, hypertension. Family history includes her mother had an IL in her 60s. She currently smokes one pack per day, denies any illicit drug use. Occasionally drinks alcohol. DIAGNOSTICS * EKG reveals sinus tachycardia HR 111, ST-T wave abnormalities in anterior-lateral leads. * CTA revealed no evidence of pulmonary embolism, small right pneumothorax. * Telemetry tracings indicate sinus mechanism with heart rate in the 90s * Chest xray chronic emphysematous change with stable small right apical pneumothorax. * Laboratory reviewed, troponin 0.82, 0.79 WBC 15.8, hemoglobin 15.3, platelets 224, d-dimer 1.1, sodium 136, potassium 4.8, BUN 9, serum creatinine 0.59, lactate 2.3, repeat 2.0, AST 61, AST 47 * Current home cardiac medications include none. On synthroid, Trelegy Ellipta, albuterol and Vitamin D REVIEW OF SYSTEMS At the time of my exam: CONSTITUTIONAL: Denies fever or chills. CARDIOVASCULAR: Denies chest pain, shortness of breath, orthopnea, PND or palp itations. RESPIRATORY: Denies cough. GASTROINTESTINAL: Denies abdominal pain, diarrhea, constipation, nausea or vomiting. MUSCULOSKELETAL: Denies myalgias. NEUROLOGIC: Denies numbness, tingling, headacbe or weakness. ENDOCRINE: Denies fatigue, weight change, polydipsia or polyurina. GENITOURINARY: Denies burning, hematuria or urgency with micturation. HEMATOLOGIC: Denies history of anemia or bleeding. PHYSICAL EXAMINATION Blood pressure 93/60, heart rate 97, afebrile, oxygen saturation is 97% on 3 L nasal cannula CONSTITUTIONAL: No apparent distress. HEENT: Head is normocephalic. Pupils are equal, round. Sclerae anicteric. Mucous membranes of the mouth are moist. No JVD. No carotid bruit. CHEST EXAMINATION: Lungs are clear to auscultation. No chest wall tenderness is noted on palpation or with deep breathing. HEART EXAMINATION: Regular rate and rhythm. S1, S2 heard. No murmurs, gallops or rub. ABDOMEN: Soft, nontender. Positive bowel sounds. EXTREMITIES: 2+ peripheral pulses, no lower extremity edema and no calf tenderness. NEUROLOGIC EXAMINATION: Patient is awake, alert and oriented x3. ASSESSMENT Shortness of breath, chest pain, and elevated troponin, concerning for NSTEMI Small right sided pneumothorax Chronic nicotine dependence Hypothyroidism COPD History of asthma PLAN Plan for cardiac catheterization today, patient agreeable. Obtain 2D echocardiogram and doppler study to assess cardiac structure and function. I have discussed the risks, benefits and alternative therapies for the above- mentioned procedure and for both sedation/analgesia as well as necessary blood product administration, if indicated, as they pertain to this patient. The patient has indicated understanding and acceptance of the risks and procedures discussed. Questions have been answered appropriately and she is agreeable to move forward with the above-stated procedure. Smoking cessation discussed and highly recommended Further recommendations based on clinical course Nurse practitioner note has been reviewed by physician. Signing provider agrees with the documented findings, assessment, and plan of care. Past Medical History Past Medical History: Asthma, COPD, Osteoarthritis (OA), Thyroid Disorder History of Any Multi-Drug Resistant Organisms: None Reported Past Surgical History: Tonsillectomy Additional Psychological History / Comment(s): OCD Smoking Status: Current every day smoker Past Alcohol Use History: Occasional Additional Past Alcohol Use History / Comment(s): Drinks 1 beer per week. Past Drug Use History: None Reported Medications and Allergies Home Medications Medication Instructions Recorded Confirmed Type Albuterol Sulfate [Proair Hfa] 2 puff INHALATION RT-Q6H PRN 04/21/22 04/21/22 History Ergocalciferol (Vitamin D2) 1,250 mcg PO QMONTHLY 04/21/22 04/21/22 History [Drisdol (50,000 Iu)] Fluticasone/Umeclidin/Vilanter 1 puff INHALATION RT-DAILY 04/21/22 04/21/22 History [Trelegy Ellipta 100-62.5-25] Ibuprofen [Motrin] 800 mg PO QID PRN 04/21/22 04/21/22 History Levothyroxine Sodium [Synthroid] 137 mcg PO DAILY 04/21/22 04/21/22 History Allergies Allergy/AdvReac Type Severity Reaction Status Date / Time No Known Allergies Allergy Verified 04/21/22 18:57 Physical Exam Vitals: Vital Signs Temp Pulse Pulse Resp BP BP Pulse Ox 04/22/22 08:40 96 04/22/22 08:28 92 04/22/22 05:23 91 18 91/60 97 04/22/22 04:00 98 18 98/63 98 04/22/22 02:00 100 18 04/21/22 23:52 97.7 F 109 H 18 98/66 100 04/21/22 23:05 112 H 18 91/71 99 04/21/22 22:30 112 H 20 94/64 100 04/21/22 20:24 114 H 19 96/64 96 04/21/22 18:51 115 H 24 96/69 97 04/21/22 18:38 118 H 18 04/21/22 18:30 115 H 20 04/21/22 18:22 95 04/21/22 17:27 97 F L 123 H 32 H 107/68 88 L Intake and Output 04/21/22 04/22/22 04/22/22 22:59 06:59 14:59 Intake Total 0 Balance 0 Intake: Oral 0 Other: Voiding Method Toilet # Voids 2 Weight 38.102 kg 38.102 kg Results 04/21/22 17:51 04/21/22 17:51 Cardiac Enzymes 04/21/22 04/21/22 04/21/22 Range/Units 17:51 17:51 23:55 AST 61 H (14-36) U/L Troponin I 0.826 H* 0.799 H* (0.000-0.034) ng/mL Coagulation 04/21/22 Range/Units 17:51 PT 10.4 (9.0-12.0) sec APTT 23.8 (22.0-30.0) sec CBC 04/21/22 Range/Units 17:51 WBC 15.8 H (3.8-10.6) k/uL RBC 4.95 (3.80-5.40) m/uL Hgb 15.3 (11.4-16.0) gm/dL Hct 45.9 (34.0-46.0) % Plt Count 224 (150-450) k/uL Comprehensive Metabolic Panel 04/21/22 Range/Units 17:51 Sodium 136 L (137-145) mmol/L Potassium 4.8 (3.5-5.1) mmol/L Chloride 96 L (98-107) mmol/L Carbon Dioxide 31 H (22-30) mmol/L BUN 9 (7-17) mg/dL Creatinine 0.59 (0.52-1.04) mg/dL Glucose 220 H (74-99) mg/dL Calcium 8.6 (8.4-10.2) mg/dL AST 61 H (14-36) U/L ALT 47 H (4-34) U/L Alkaline Phosphatase 99 (38-126) U/L Total Protein 7.2 (6.3-8.2) g/dL Albumin 4.4 (3.5-5.0) g/dL Current Medications Generic Name Dose Route Start Last Admin Trade Name Freq PRN Reason Stop Dose Admin Acetaminophen 650 mg 04/21/22 21:41 Acetaminophen Tab 325 Mg Tab PO Q4HR PRN Mild Pain or Fever > 100.5 Albuterol/Ipratropium 3 ml 04/21/22 23:07 Ipratropium-Albuterol 3 Ml Neb INHALATION RT-Q2H PRN Shortness Of Breath Or Wheezing Albuterol/Ipratropium 3 ml 04/22/22 08:00 04/22/22 08:27 Ipratropium-Albuterol 3 Ml Neb INHALATION 3 ml RT-QID MARKY Administration Azithromycin 500 mg 04/22/22 09:00 Azithromycin 500 Mg Tab PO 04/24/22 09:01 DAILY MARKY Protocol Naloxone HCl 0.2 mg 04/21/22 21:41 Naloxone 0.4 Mg/Ml 1 Ml Vial IVP Q2M PRN Opioid Reversal Prednisone 40 mg 04/22/22 09:00 Prednisone 20 Mg Tab PO 04/26/22 09:01 DAILY MARKY Intake and Output 04/21/22 04/22/22 04/22/22 22:59 06:59 14:59 Intake Total 0 Balance 0 Intake: Oral 0 Other: Voiding Method Toilet # Voids 2 Weight 38.102 kg 38.102 kg 04/21/22 17:51 04/21/22 17:51
--- NOTE | 2022-04-22 11:09 | P.CARDCATH ---
Description of Procedure: PROCEDURES PERFORMED: Left heart catheterization, bilateral coronary angiography, left ventriculogram INDICATION: NSTEMI CONSENT:I have discussed the risks, benefits and alternative therapies for the above-mentioned procedure and for both sedation/analgesia as well as necessary blood product administration, if indicated, as they pertain to this patient. The patient has indicated understanding and acceptance of the risks and procedures discussed. PROCEDURE: After the risks, benefits and alternatives of the above mentioned procedure explained in detail with the patient, informed consent was obtained. Patient was taken to the catheterization lab and prepped and draped in usual fashion. 1% lidocaine was used to anesthetize the right radial artery. A 6- Egyptian sheath was placed in the right radial artery using modified Seldinger technique. Left coronary angiography was performed with a 5-Egyptian JL 3.5 catheter and right coronary angiography was performed with a 5-Egyptian JR5 catheter in various views. A 5-Egyptian FR5 catheter was inserted into the left ventricle and pressure measurements were obtained. A left ventriculgram was performed in the DOAN projection with power injection. The right radial sheath was removed and a TR band was placed with hemostasis achieved. The patient tolerated the procedure well. Patient was transported back to the post catheterization holding area in stable condition. Conscious Sedation: Patient was monitored under the direct supervision of vision of myself for conscious sedation using Versed and fentanyl for a total duration of 16 minutes LEFT VENTRICULOGRAM: Left ventricular EF is 30-35% with apical hypokinesis and basal sparing consistent with Takotsubo's cardiomyopathy. HEMODYNAMICS: Ao: 80/60 LV: 71/8, LVEDP 19 SELECTIVE CORONARY ARTERIOGRAPHY: LEFT MAIN: The left main is a large caliber vessel which bifurcates into the LAD and circumflex. There is no significant stenosis. LEFT ANTERIOR DESCENDING CORONARY ARTERY: LAD is a large caliber vessel which wraps around to the apex. There is proximal 20% stenosis and a mid LAD 30-40% stenosis and otherwise mild luminal irregularities. There are extensive left to right collaterals. LEFT CIRCUMFLEX CORONARY ARTERY: Left circumflex is a moderate caliber vessel with mild luminal irregularities and somewhat tortuous. RIGHT CORONARY ARTERY: The right coronary artery is a large caliber vessel which gives off a PDA and PLV branch and is the dominant vessel. There is 100% mid RCA stenosis with right to right collaterals. FINAL IMPRESSION: 1. CAD as described above including 100% RCA with left to right and right to right collaterals, 30-40% LAD stenosis 2. Cardiomyopathy with EF 30-35% with apical hypokinesis, not explained by coronary anatomy consistent with Takotsubo's cardiomyopathy 3. Elevated left sided filling pressures PLAN: 1. Aggressive risk factor modification per most recent ACC/AHA guidelines. 2. RCA appears chronic with robust collaterals. Presentation consistent with Takotsubo's cardiomyopathy and recommend medical therapy unless patient develops ongoing angina may consider PCI RCA.
--- NOTE | 2022-04-22 14:22 | P.CNPUL ---
History of Present Illness Consult date: 04/22/22 Requesting physician: Errol Caldera Reason for consult: dyspnea, abnormal CXR/CT Chief complaint: Shortness of breath, chest pain History of present illness: This is a pleasant 61-year-old female patient with a known history of chronic obstructive pulmonary disease, chronic and ongoing tobacco dependence, hypothyroidism, vitamin D deficiency. She had presented to the emergency room yesterday with complaints of increasing shortness of breath over 2 days. Some chest discomfort. Occasional dry cough. EKG revealed anteroseptal myocardial infarction of indeterminate age. No acute ST or T wave abnormalities. Chest x- ray revealed evidence of emphysema. Suspected 3 mm pulmonary nodule in the right lung. No focal airspace consolidation or CT angiogram revealed no evidence of pulmonary embolism. Small right pneumothorax. No evidence for tension. Moderate to severe emphysematous changes bilaterally. Troponins 0.7, 0.8 0.4. White count 15.8. Hemoglobin 15.3. D-dimer 1.14. Sodium 136. Potassium 4.8. BUN 9. Creatinine 0.59. Glucose 220. ProBNP 5770. She did undergo cardiac catheterization today that revealed coronary artery disease including 100% RCA occlusion with [id number] and right to right collateral circulation. 30-40% stenosis of the LAD. There was cardiomyopathy with an ejection fraction of 30-35%. Not explained by the coronary anatomy, consistent with Takotsubo cardiomyopathy. She's been initiated on DuoNeb inhalations, prednisone, empiric antibiotics in the form of azithromycin. Review of Systems REVIEW OF SYSTEMS: CONSTITUTIONAL: Denies any recent significant weight loss or weight gain. EYES: Denies change in vision. EARS, NOSE, MOUTH, THROAT: Denies headaches, denies sore throat. CARDIOVASCULAR: Positive for chest pain, no palpitations or syncopal episodes. RESPIRATORY: Positive for shortness of breath, no cough, congestion or hemoptysis. GASTROINTESTINAL: Denies change in appetite, denies abdominal pain GENITOURINARY: Denies hematuria, denies infections. MUSKULOSKELETAL: Denies pain, denies swelling. INTEGUMENTARY: Denies rash, denies eczema. NEUROLOGICAL: Denies recent memory loss, no recent seizure activity. PSYCHIATRIC: Denies anxiety, denies depression. HEMATOLOGIC/LYMPHATIC: Denies anemia, denies enlarged lymph nodes. Past Medical History Past Medical History: Asthma, COPD, Osteoarthritis (OA), Thyroid Disorder History of Any Multi-Drug Resistant Organisms: None Reported Past Surgical History: Tonsillectomy Additional Psychological History / Comment(s): OCD Smoking Status: Current every day smoker Past Alcohol Use History: Occasional Additional Past Alcohol Use History / Comment(s): Drinks 1 beer per week. Past Drug Use History: None Reported Medications and Allergies Home Medications Medication Instructions Recorded Confirmed Type Albuterol Sulfate [Proair Hfa] 2 puff INHALATION RT-Q6H PRN 04/21/22 04/21/22 History Ergocalciferol (Vitamin D2) 1,250 mcg PO QMONTHLY 04/21/22 04/21/22 History [Drisdol (50,000 Iu)] Fluticasone/Umeclidin/Vilanter 1 puff INHALATION RT-DAILY 04/21/22 04/21/22 History [Trelegy Ellipta 100-62.5-25] Ibuprofen [Motrin] 800 mg PO QID PRN 04/21/22 04/21/22 History Levothyroxine Sodium [Synthroid] 137 mcg PO DAILY 04/21/22 04/21/22 History Allergies Allergy/AdvReac Type Severity Reaction Status Date / Time No Known Allergies Allergy Verified 04/21/22 18:57 Physical Exam Vitals: Vital Signs Temp Pulse Pulse Pulse Resp BP BP 04/22/22 14:01 110 H 18 95/52 04/22/22 12:31 103 H 15 88/54 04/22/22 12:15 83 16 95/57 04/22/22 11:44 96 04/22/22 11:37 88 04/22/22 11:30 88 18 89/56 04/22/22 11:16 94 18 85/58 04/22/22 11:06 91 18 80/53 04/22/22 09:42 98.2 F 97 22 04/22/22 08:40 96 04/22/22 08:28 92 04/22/22 05:23 91 18 04/22/22 04:00 98 18 04/22/22 02:00 100 18 04/21/22 23:52 97.7 F 109 H 18 04/21/22 23:05 112 H 18 91/71 04/21/22 22:30 112 H 20 94/64 04/21/22 20:24 114 H 19 96/64 04/21/22 18:51 115 H 24 96/69 04/21/22 18:38 118 H 18 04/21/22 18:30 115 H 20 04/21/22 18:22 04/21/22 17:27 97 F L 123 H 32 H 107/68 BP Pulse Ox 04/22/22 14:01 93 L 04/22/22 12:31 99 04/22/22 12:15 96 04/22/22 11:44 04/22/22 11:37 04/22/22 11:30 99 04/22/22 11:16 100 04/22/22 11:06 99 04/22/22 09:42 93/60 04/22/22 08:40 04/22/22 08:28 04/22/22 05:23 91/60 97 04/22/22 04:00 98/63 98 04/22/22 02:00 04/21/22 23:52 98/66 100 04/21/22 23:05 99 04/21/22 22:30 100 04/21/22 20:24 96 04/21/22 18:51 97 04/21/22 18:38 04/21/22 18:30 04/21/22 18:22 95 04/21/22 17:27 88 L Intake and Output 04/21/22 04/22/22 04/22/22 22:59 06:59 14:59 Intake Total 125 Balance 125 Intake: IV 125 Oral 0 Other: Voiding Method Toilet Toilet # Voids 2 Weight 38.102 kg 38.102 kg 38.102 kg GENERAL EXAM: Alert, pleasant 59-year-old female, on 3 L nasal cannula, comfortable in no apparent distress. HEAD: Normocephalic. EYES: Normal reaction of pupils, equal size. NOSE: Clear with pink turbinates. THROAT: No erythema or exudates. NECK: No masses, no JVD. CHEST: No chest wall deformity. LUNGS: Equal air entry with no crackles, wheeze, rhonchi or dullness. CVS: S1 and S2 normal with no audible murmur, regular rhythm. ABDOMEN: No hepatosplenomegaly, normal bowel sounds, no guarding or rigidity. SPINE: No scoliosis or deformity SKIN: No rashes CENTRAL NERVOUS SYSTEM: No focal deficits, tone is normal in all 4 extremities. EXTREMITIES: There is no peripheral edema. No clubbing, no cyanosis. Peripheral pulses are intact. Results - Laboratory Findings CBC and BMP: 04/21/22 17:51 04/21/22 17:51 PT/INR, D-dimer PT 10.4 sec (9.0-12.0) 04/21/22 17:51 INR 0.9 (<1.2) 04/21/22 17:51 D-Dimer 1.14 mg/L FEU (<0.60) H 04/21/22 17:51 Abnormal lab findings: Abnormal Labs 04/21/22 04/21/22 04/21/22 17:51 17:51 17:51 WBC 15.8 H Neutrophils # 13.5 H D-Dimer 1.14 H VBG HCO3 Sodium 136 L Chloride 96 L Carbon Dioxide 31 H Glucose 220 H Plasma Lactic Acid Jacobo AST 61 H ALT 47 H Troponin I 04/21/22 04/21/22 04/21/22 17:51 17:51 19:18 WBC Neutrophils # D-Dimer VBG HCO3 30 H Sodium Chloride Carbon Dioxide Glucose Plasma Lactic Acid Jacobo 3.5 H* AST ALT Troponin I 0.826 H* 04/21/22 04/21/22 04/22/22 23:16 23:55 11:22 WBC Neutrophils # D-Dimer VBG HCO3 Sodium Chloride Carbon Dioxide Glucose Plasma Lactic Acid Jacobo 2.3 H* AST ALT Troponin I 0.799 H* 0.493 H* - Diagnostic Findings Chest x-ray: image reviewed CT scan - chest: image reviewed Assessment and Plan Assessment: Non-ST segment elevation myocardial infarction , found to have 100% stenosis of the RCA with collateral circulation, 30-40% stenosis of the LAD Takotsubo cardiomyopathy with ejection fraction 30-40% Acute exacerbation of chronic obstructive pulmonary disease Chronic and ongoing tobacco dependence Hypothyroidism Vitamin D deficiency Plan: The patient was seen and evaluated Chest x-ray, CAT scan, labs and medications reviewed Educated regarding the importance of complete smoking cessation Continue bronchodilators, steroids Would benefit from outpatient workup for her COPD We will continue to follow and make further recommendations based on her clinical status I have personally seen and examined the patient, performed the documentation and the assessment and plan as written. Number of minutes spent on the visit: 20.
[2022-04-22 18:19] LABS: Triglycerides 41.4 mg/dL (0.00-149.00)
[2022-04-22 18:35] LABS: Chol/HDL Ratio 2.34 Ratio
[2022-04-23] MEDS: IPRATROPIUM-ALBUTEROL 3 ML NEB INHALATION SCH ×4 (08:14→20:24)
--- NOTE | 2022-04-23 08:32 | XR ---
EXAMINATION TYPE: XR chest 1V portable DATE OF EXAM: 04/23/2022 COMPARISON: 04/22/2022 INDICATION: Spontaneous right pneumothorax TECHNIQUE: Single frontal view of the chest is obtained. FINDINGS: The heart size is normal. The pulmonary vasculature is normal. There is a right apical pneumothorax which is stable in size from comparison. There is increased lung markings at the right base. Correlate for atelectasis. Small right pleural ef fusion remains present. Nodularity in the left upper lung field present previously. This was evident on the CTA chest 04/21/2022. IMPRESSION: 1. Stable right apical pneumothorax. 2. Small nodule left upper lobe. 3. Increasing right lower lobe infiltrate. Correlate for atelectasis. 4. Small right pleural effusion, stable.
[2022-04-23] MEDS: AZITHROMYCIN 500 MG TAB PO SCH (08:40)
[2022-04-23] MEDS: predniSONE 20 MG TAB PO SCH (08:40)
--- NOTE | 2022-04-23 09:33 | P.PN ---
Subjective Progress Note Date: 04/23/22 Principal diagnosis: This is a 61-year-old female patient who follows on an outpatient basis with Dr. Caldera for her primary care service. She has a past medical history signific ant for chronic obstructive pulmonary disease, thyroid disorder, asthma, chronic ongoing tobacco dependence smokes about 1 pack of cigarettes a day, osteoarthritis, recent fall from standing with injury to her left wrist and obsessive-compulsive disorder. She presented to the emergency department here at [facility] yesterday 04/21/2022 with complaints of progressive shortness of breath which came on acutely on 04/20/2022. She reports she also had some right shoulder discomfort when the shortness of breath came on. She denies any complaints of nausea, vomiting, fever, chills, palpitations, headache, hemoptysis, hematemesis, lightheadedness, presyncope or syncope. She denies any home oxygen use, although reports she has a nebulizer machine at home in which she tried a treatment without relief. A 12-lead EKG was completed on admission which showed sinus tachycardia with a heart rate of 111 BPM. A chest x-ray was completed which demonstrated emphysematous changes, no focal airspace consolidation and a suspected 3 mm nodule in the right lung. Due to the patient's presenting symptoms and findings of the pulmonary nodule. CTA of the chest was completed per PE protocol which demonstrated no evidence of pulmonary embolism, a small right sided pneumothorax with no evidence for tension physiology and moderate to severe emphysematous changes bilaterally. Initial laboratory results showed a WBC count of 15.8, hemoglobin 15.3, hematocrit 45.9, platelets 224, PT 10.4, INR 0.9, PTT 23.8, d-dimer 1.14, sodium 136, potassium 4.8, chloride 96, CO2 31, BUN 9, creatinine 0.59, plasma lactic acid venous 3.5, calcium 8.6, magnesium 1.8, AST 61, ALT 47, proBNP 5770 and an elevated troponin of 0.826 with a repeat troponin trending down at 0.799. Subsequently, due to the findings on the CTA of the chest for spontaneous right- sided pneumothorax a consult was placed to cardiothoracic surgery for further evaluation and treatment recommendations. The patient was seen and examined in follow-up today 04/23/2022 at her bedside on the cardiac stepdown unit. Currently she is lying in bed, is awake, alert, oriented 3 and is in no acute apparent distress. She remains on 3 L nasal cannula with oxygen saturations 97% and she is achieving 500-750 mL on her in centive spirometry with encouragement. Chest x-ray this morning demonstrates a stable right apical pneumothorax, a small nodule left upper lobe, increasing right lower lobe infiltrate/atelectasis and a small right pleural effusion. She reports that her symptoms of shortness of breath have improved in the last 24 hours. She states that getting up to the bathroom and back to her bed seemed to be a little bit easier than the past 24-48 hours. She underwent a cardiac catheterization yesterday performed by Dr. Murdock which demonstrated coronary artery disease with a 100% right coronary artery with left to right and right to right collaterals and a 30-40% stenosis to her left anterior descending coronary artery. It also demonstrated cardiomyopathy with an ejection fraction 30-35% with apical hypokinesis and elevated left sided filling pressures. It also stated in the cardiac catheterization report that the cardiomyopathy and ejection fraction of 30-35% was not explained by her coronary anatomy and may be consistent with Takotsubo cardiomyopathy. Objective - Vital Signs Vital signs: Vital Signs Temp 98.3 F 04/23/22 08:29 Pulse 99 04/23/22 08:29 Resp 18 04/23/22 08:29 BP 101/61 04/23/22 08:29 Pulse Ox 97 04/23/22 08:29 FiO2 Intake & Output 04/22/22 04/23/22 04/23/22 18:59 06:59 18:59 Intake Total 243 0 Balance 243 0 Weight 38.102 kg Intake: IV 125 Oral 118 0 Other: Voiding Method Toilet Toilet # Voids 2 1 - Exam CONSTITUTIONAL: Sitting up in bed on the cardiac stepdown unit, appears comfortable, cooperative, no apparent acute distress. HEENT: Neck is supple, no JVD, no lymphadenopathy. RESPIRATORY: Lungs sounds essentially diminished throughout, with few scattered expiratory wheezes. Respirations are symmetrical and nonlabored. Currently on 3 L nasal cannula with oxygen saturations 97%. Able to achieve 500-750 mL on her incentive spirometry. Strong cough. CARDIOVASCULAR: Regular rhythm and rate. S1 and S2 present, negative for S3, gallop or murmur. No calf pain or tenderness noted. Remote telemetry showing normal sinus rhythm heart rate 86 BPM. GASTROINTESTINAL: Abdomen soft, nontender, nondistended. Active bowel sounds present 4 quadrants. Tolerating diet. Passing flatus. No guarding or rigidity. GENITOURINARY: Continues to void. INTEGUMENTARY: Skin is warm and dry with no evidence of clubbing or cyanosis. NEUROLOGIC: Cranial nerves II through XII intact. No focal deficits. MUSKULOSKELETAL: Able to move all extremities, strength equal bilaterally, generalized weakness. PSYCHIATRIC: Alert and oriented to person place and time, appropriate affect, intact judgment and insight. - Allied health notes Allied health notes reviewed: nursing - Labs CBC & Chem 7: 04/21/22 17:51 04/21/22 17:51 Labs: Abnormal Lab Results - Last 24 Hours (Table) 04/22/22 Range/Units 11: Troponin I 0.493 H* (0.000-0.034) ng/mL Microbiology - Last 24 Hours (Table) 04/21/22 19:40 Blood Culture - Preliminary Blood No Growth after 24 hours 04/21/22 20:00 Blood Culture - Preliminary Blood No Growth after 24 hours - Imaging and Cardiology Chest x-ray: report reviewed, image reviewed Assessment and Plan Assessment: 1. Spontaneous right-sided pneumothorax, chest x-ray demonstrating stable right apical pneumothorax 2. Non-ST elevated myocardial infarction this admission with elevated troponins which are trending down, status post heart catheterization which demonstrated 100% stenosis to her right coronary artery with collateral circulation and a 30- 40% stenosis of her left anterior descending coronary artery. 3. Takotsubo cardiomyopathy with an ejection fraction of 30-40% 4. Chronic obstructive pulmonary disease, currently on 3 L nasal cannula oxygen 5. Shortness of breath, likely secondary to above 6. History of asthma 7. Chronic ongoing tobacco dependence, smokes 1 pack of cigarettes daily 8. Thyroid disorder 9. Osteoarthritis 10. Obsessive-compulsive disorder 11. Recent fall from standing, with injury to her left wrist Plan: 1. Continue to monitor daily chest x-rays for resolution of stable right apical pneumothorax. 2. Continue encourage use of her incentive spirometry 10 times every hour while awake. 3. Wean oxygen as tolerated, bronchodilator and oral steroid management per pulmonary/critical care service. 4. The importance of risk modification including smoking cessation at been discussed with the patient. 5. Increase activity as tolerated. Out of bed for all meals. 6. More recommendations to follow based on patient's clinical course. Time with Patient: Greater than 30
--- NOTE | 2022-04-23 10:00 | CA ---
Transthoracic Echo Report Name: Beatriz Orozco Age: 61 Gender: F : 1960 Exam Date: 04/22/2022 13:20 Exam Location: [facility] Ht (in): 60 Wt (lb): 84 Ordering Physician: Rachelle Hannah Attending/Referring Phys: Fisher Seal Alison Smith RDCS Procedure CPT: Indications: shortness of breath, elevated troponin Cardiac Hx: Technical Quality: Fair Contrast 1: Total Dose (mL): Contrast 2: Total Dose (mL): MEASUREMENTS (Male / Female) Normal Values 2D ECHO LV Diastolic Diameter PLAX 3.8 cm 4.2 - 5.9 / 3.9 - 5.3 cm LV Systolic Diameter PLAX 2.5 cm IVS Diastolic Thickness 1.0 cm 0.6 - 1.0 / 0.6 - 0.9 cm LVPW Diastolic Thickness 0.8 cm 0.6 - 1.0 / 0.6 - 0.9 cm LV Relative Wall Thickness 0.5 RV Internal Dim ED PLAX 2.2 cm LA Systolic Diameter LX 2.5 cm 3.0 - 4.0 / 2.7 - 3.8 cm LA Volume 20.3 cm??? 18 - 58 / 22 - 52 cm??? M-MODE Aortic Root Diameter MM 2.4 cm MV E Point Septal Separation 0.4 cm AV Cusp Separation MM 1.6 cm DOPPLER AV Peak Velocity 120.8 cm/s AV Peak Gradient 5.8 mmHg MV Area PHT 5.1 cm??? Mitral E Point Velocity 100.8 cm/s Mitral A Point Velocity 73.5 cm/s Mitral E to A Ratio 1.4 MV Deceleration Time 149.7 ms MV E' Velocity 6.4 cm/s Mitral E to MV E' Ratio 15.6 TR Peak Velocity 296.2 cm/s TR Peak Gradient 35.1 mmHg Right Ventricular Systolic Press 38.8 mmHg FINDINGS Left Ventricle Left ventricular ejection fraction is estimated at 40-45 %. Small left ventricular cavity. Left ventricular wall thickness normal. Apical anterior inferior lateral septal saavedra hypokinesis Right Ventricle Normal right ventricular size. Mild pulmonary hypertension. Right Atrium Normal right atrial size. Left Atrium Normal left atrial size. No evidence for an atrial septal defect. Mitral Valve Mitral valve thickened. Mild mitral regurgitation. Aortic Valve Trileaflet aortic valve. No aortic valve stenosis or regurgitation. Tricuspid Valve Mild tricuspid regurgitation. Pulmonic Valve Structurally normal pulmonic valve. No pulmonic regurgitation. Pericardium Normal pericardium. No pericardial effusion. Aorta Normal size aortic root and proximal ascending aorta. CONCLUSIONS Technically difficult study for interpretation Mildly impaired LV function was EF around 40-45% Previewed by: Dr. Franco Cunha MD (Electronically Signed) Final Date: 23 April 2022 09:59
[2022-04-23] MEDS: SODIUM CHLORIDE 0.9% 1,000 ML in EMPTY BAG 1 BAG IV SCH (10:37)
--- NOTE | 2022-04-23 10:51 | HP ---
HISTORY AND PHYSICAL CHIEF COMPLAINT: Right posterior chest pain, shortness of breath. HISTORY OF PRESENT ILLNESS: This is another admission for this 61-year-old white female who is a heavy smoker. Before coming to the emergency room, she noticed some pain in the right scapular area and then went on to develop shortness of breath. She came to the emergency room, was found to have a 10% right-sided pneumothorax. She also had an elevated troponin. She was admitted by Thoracic Surgery and Cardiology. The decision was to place a chest tube and was deferred since her leak only comprised about 10%. However, she was taken to the operating room for cardiac cath, where she was found to have a complete occlusion of the RCA and a 30% to 40% occlusion of the LDA, which all contributed to cardiomyopathy with a 30% to 35% ejection fraction. REVIEW OF SYSTEMS: At the present time, she is comfortable. She has not had any shortness of breath, chest pain, abdominal pain, nausea, vomiting, etc. Past medical history, family history and personal and social histories are essentially unremarkable. ALLERGIES: She is not allergic to any medication. MEDICATIONS: She uses Ventolin HFA, Trelegy Ellipta, levothyroxine 0.137 once a day, montelukast 10 mg once a day, Motrin, and vitamin D. Surgically, she has had T and A, and she has been treated for a fracture of the left foot. She does continue to smoke fairly heavily. She drinks alcohol occasionally. PHYSICAL EXAMINATION: VITAL SIGNS: Blood pressure 120/70 with a pulse of 89, respirations of 35, and she is afebrile. GENERAL: She appeared to be slender and in no acute distress, but she was somewhat short of breath. HEAD, EARS, EYES, NOSE, MOUTH AND THROAT: Normal. NECK: Neck veins are not distended. CHEST: Demonstrated poor breath sounds throughout and it was slightly been more diminished on the right. There are no rales or rhonchi. CARDIAC: Demonstrates sinus tachycardia. ABDOMEN: Soft and nontender. EXTREMITIES: Normal except for the left hand where she had in the past and was recently diagnosed as having a fracture in the left wrist. NEUROLOGICAL: She is intact. She is admitted to the hospital with diagnoses of: 1. Right-sided pneumothorax. 2. Chronic obstructive pulmonary disease. 3. Coronary artery disease. 4. Atherosclerotic cardiomyopathy with decreased ejection fraction. 5. Fracture of the left wrist. PLAN: 1. Bedrest. 2. IV fluids. 3. Consult Cardiology and Plastic Surgery. 4. Updrafts and monitor her pneumothorax. CHEMO / WILLIAM: [id number] /
[2022-04-23 11:04] LABS: Basophils % (A) 0 %; Eosinophils # (A) 0.1 k/uL (0-0.7); Eosinophils % (A) 1 %; HGB 12.4 gm/dL (11.4-16.0); Hypochromasia Slight; Lymphocytes # (A) 0.7 k/uL (1.0-4.8); Lymphocytes % (A) 7 %; MCH 31.5 pg (25.0-35.0); MCHC 32.6 g/dL (31.0-37.0); MCV 96.9 fL (80.0-100.0); Mean Platelet Volume 9.2; Monocytes # (A) 0.5 k/uL (0-1.0); Monocytes % (A) 5 %; Neutrophils # (A) 8.1 k/uL (1.3-7.7); Neutrophils % (A) 86 %; Platelet Count 170 k/uL (150-450); RBC 3.93 m/uL (3.80-5.40); RDW 12.7 % (11.5-15.5); WBC 9.4 k/uL (3.8-10.6)
[2022-04-23 11:07] LABS: African American GFR (CKD) >90 (>60 ml/min/1.73 sqM); Anion Gap 4 mmol/L; Blood Urea Nitrogen 8 mg/dL (7-17); Calcium 7.6 mg/dL (8.4-10.2); Carbon Dioxide 31 mmol/L (22-30); Chloride 103 mmol/L (98-107); Glucose 104 mg/dL (74-99); Non-African American GFR(CKD) >90 (>60 ml/min/1.73 sqM); Potassium 4.2 mmol/L (3.5-5.1); Sodium 138 mmol/L (137-145)
[2022-04-23] MEDS ORDERED: ALBUTEROL SULFATE INHALATION PRN (11:07)
[2022-04-23] MEDS ORDERED: IBUPROFEN 800 MG TAB PO PRN (11:07)
[2022-04-23] MEDS: METOPROLOL SUCCINATE (ER) 25 MG TAB.ER.24H PO SCH (11:33)
[2022-04-23] MEDS: CLOPIDOGREL 75 MG TAB PO SCH (11:33)
--- NOTE | 2022-04-23 11:51 | PN ---
PROGRESS NOTE CHIEF COMPLAINT: Right-sided pneumothorax and coronary artery disease. HISTORY OF PRESENT ILLNESS: This lady is stable and she has had no new problems. She had no chest pain, etc. PHYSICAL EXAMINATION: VITAL SIGNS: Normal. CHEST: Clear. CARDIAC: Normal. She does have a tachycardia of 123 beats per minute. Remainder of the exam is normal. IMPRESSION: 1. Right-sided pneumothorax. 2. Coronary artery disease. 3. Atherosclerotic cardiomyopathy. 4. Tachycardia. PLAN: Progress activity and follow chest x-ray. MMODL / IJN: [id number] /
--- NOTE | 2022-04-23 14:47 | P.PN ---
Subjective This is a pleasant 61-year-old female past medical history significant for chronic nicotine dependence, hypothyroidism, COPD, asthma. She does not follow with a reed man. We have been asked to see in consultation for elevated troponin. Patient is sensitive emergency department with worsening shortness of breath. She states over the past 2 days her symptoms have worsened. However, yesterday specifically she was having worsening shortness of breath all day, worse with activity. She had left sided chest discomfort as well. She had associated diaphoresis. Her pain was non-radiating. No specific alleviating factors. Aggravated by activity. Denies any nausea, vomiting, palpations, lightheadedness, dizziness, syncope or near syncope. She denies a history of CAD, [place], stroke, diabetes, hypertension. Family history includes her mother had an [place] in her 60s. She currently smokes one pack per day, denies any illicit drug use. Occasionally drinks alcohol. Patient's troponins were abnormal concerning for NSTEMI, she underwent cardiac catheterization with Dr. Murdock which revealed coronary artery disease including 100% RCA with left to right and right to right collaterals, 30-40% LAD stenosis. Cardiomyopathy with EF 30-35% with apical hypokinesis, not explained by coronary anatomy consistent with Takotsubo's cardiomyopathy. 04/23/2022 patient seen and examined at bedside, no acute distress. She denies any chest pain or shortness of breath. Vital signs are stable. echocardiogram revealed EF of 4045 percent, apical anterior and. Lateral septal wall hypokinesis. Labs: CBC unremarkable, sodium 138, potassium 4.2, BUN 8, serum creatinine 0.6, triglycerides 41, cholesterol 124, LDL 61, HDL 53 PHYSICAL EXAMINATION Vitals reviewed CONSTITUTIONAL: No apparent distress. HEENT: Head is normocephalic. No JVD. CHEST EXAMINATION: Lungs are clear to auscultation. No chest wall tenderness is noted on palpation or with deep breathing. HEART EXAMINATION: Regular rate and rhythm. S1, S2 heard. No murmurs, gallops or rub. ABDOMEN: Soft, nontender. Positive bowel sounds. EXTREMITIES: 2+ peripheral pulses, no lower extremity edema and no calf tenderness. NEUROLOGIC EXAMINATION: Patient is awake, alert and oriented x3. SKIN: right radial cath site clean dry 2+ pulses, no hematoma noted ASSESSMENT Non-ischemic cardiomopathy with apical hypokinesis, not explained by coronary anatomy consistent with Takotsubo's cardiomyopathy Elevated troponin, related to above Coronary artery disease including 100% RCA with left to right and right to right collaterals, 30-40% LAD stenosis Small right sided pneumothorax Chronic nicotine dependence Hypothyroidism COPD History of asthma PLAN Continue aspirin 81 mg daily, start metoprolol 12.5 mg daily Can consider ACEI/ARB as an outpatient secondary to low blood pressure From a cardiology perspective, patient is stable possible discharge home later today vs tomorrow. Follow up outpatient with Dr. Murdock in 1 week. Nurse practitioner note has been reviewed by physician. Signing provider agrees with the documented findings, assessment, and plan of care. Objective - Vital Signs Vital signs: Vital Signs Temp 98.3 F 04/23/22 08:29 Pulse 99 04/23/22 08:29 Resp 18 04/23/22 08:29 BP 101/61 04/23/22 08:29 Pulse Ox 97 04/23/22 08:29 FiO2 Intake & Output 04/22/22 04/23/22 04/23/22 18:59 06:59 18:59 Intake Total 243 0 Balance 243 0 Weight 38.102 kg Intake: IV 125 Oral 118 0 Other: Voiding Method Toilet Toilet # Voids 2 1 - Labs CBC & Chem 7: 04/23/22 09:55 04/23/22 09:55 Labs: Abnormal Lab Results - Last 24 Hours (Table) 04/22/22 Range/Units 11: Troponin I 0.493 H* (0.000-0.034) ng/mL Microbiology - Last 24 Hours (Table) 04/21/22 19:40 Blood Culture - Preliminary Blood No Growth after 24 hours 04/21/22 20:00 Blood Culture - Preliminary Blood No Growth after 24 hours
--- NOTE | 2022-04-23 15:07 | P.PN ---
Subjective Progress Note Date: 04/23/22 This is a pleasant 61-year-old female patient with a known history of chronic obstructive pulmonary disease, chronic and ongoing tobacco dependence, hypothyroidism, vitamin D deficiency. She had presented to the emergency room yesterday with complaints of increasing shortness of breath over 2 days. Some chest discomfort. Occasional dry cough. EKG revealed anteroseptal myocardial infarction of indeterminate age. No acute ST or T wave abnormalities. Chest x- ray revealed evidence of emphysema. Suspected 3 mm pulmonary nodule in the right lung. No focal airspace consolidation or CT angiogram revealed no evidence of pulmonary embolism. Small right pneumothorax. No evidence for tension. Moderate to severe emphysematous changes bilaterally. Troponins 0.7, 0.8 0.4. White count 15.8. Hemoglobin 15.3. D-dimer 1.14. Sodium 136. Potassium 4.8. BUN 9. Creatinine 0.59. Glucose 220. ProBNP 5770. She did undergo cardiac catheterization today that revealed coronary artery disease including 100% RCA occlusion with [id number] and right to right collateral circulation. 30-40% stenosis of the LAD. There was cardiomyopathy with an ejection fraction of 30-35%. Not explained by the coronary anatomy, consistent with Takotsubo cardiomyopathy. She's been initiated on DuoNeb inhalations, prednisone, empiric antibiotics in the form of azithromycin. The patient is seen today 04/23/2022 in follow-up on the selective care unit. She is currently sitting up at the bedside. Awake and alert in no acute distress. She is maintaining good O2 saturations in the 90s on room air. No chest pain. Chest x-ray reveals a stable right apical pneumothorax. Small nodule in the left upper lobe. Atelectasis of the right lower lobe with a small right pleural effusion. Blood cultures revealed no growth. White count 9.4. Hemoglobin 12.4. Sodium 138. Potassium 4.2. BUN 8. Creatinine 0.61. Objective - Vital Signs Vital signs: Vital Signs Temp 98.3 F 04/23/22 08:29 Pulse 100 04/23/22 11:43 Resp 18 04/23/22 11:31 BP 104/65 04/23/22 11:31 Pulse Ox 95 04/23/22 11:31 FiO2 Intake & Output 04/22/22 04/23/22 04/23/22 18:59 06:59 18:59 Intake Total 243 0 Balance 243 0 Weight 38.102 kg Intake: IV 125 Oral 118 0 Other: Voiding Method Toilet Toilet Toilet # Voids 2 1 - Exam GENERAL EXAM: Alert, pleasant 59-year-old female, on room air, comfortable in no apparent distress. HEAD: Normocephalic. EYES: Normal reaction of pupils, equal size. NOSE: Clear with pink turbinates. THROAT: No erythema or exudates. NECK: No masses, no JVD. CHEST: No chest wall deformity. LUNGS: Equal air entry with faint crackles in the right lung base. CVS: S1 and S2 normal with no audible murmur, regular rhythm. ABDOMEN: No hepatosplenomegaly, normal bowel sounds, no guarding or rigidity. SPINE: No scoliosis or deformity SKIN: No rashes CENTRAL NERVOUS SYSTEM: No focal deficits, tone is normal in all 4 extremities. EXTREMITIES: There is no peripheral edema. No clubbing, no cyanosis. Peripheral pulses are intact. - Labs CBC & Chem 7: 04/23/22 09:55 04/23/22 09:55 Labs: Abnormal Lab Results - Last 24 Hours (Table) 04/23/22 04/23/22 Range/Units 09:55 09:55 Neutrophils # 8.1 H (1.3-7.7) k/uL Lymphocytes # 0.7 L (1.0-4.8) k/uL Carbon Dioxide 31 H (22-30) mmol/L Glucose 104 H (74-99) mg/dL Calcium 7.6 L (8.4-10.2) mg/dL Microbiology - Last 24 Hours (Table) 04/21/22 19:40 Blood Culture - Preliminary Blood No Growth after 24 hours 04/21/22 20:00 Blood Culture - Preliminary Blood No Growth after 24 hours Assessment and Plan Assessment: Non-ST segment elevation myocardial infarction, found to have 100% stenosis of the RCA with collateral circulation, 30-40% stenosis of the LAD Takotsubo cardiomyopathy with ejection fraction 30-40% Spontaneous right-sided pneumothorax, follow-up chest x-ray reveals stable right apical pneumothorax Pulmonary nodules largest of which is 8 mm. Acute exacerbation of chronic obstructive pulmonary disease Chronic and ongoing tobacco dependence Hypothyroidism Vitamin D deficiency Plan: The patient was seen and evaluated Chest x-ray, labs and medications reviewed Educated regarding the importance of complete smoking cessation Continue home pulmonary medications including Trelegy and probably Cleared for discharge from the pulmonary standpoint Close follow-up in our office in 1 week Would benefit from outpatient workup for her COPD Would recommend outpatient PET scan versus surveillance CT in 6 regarding pulmonary nodules I have personally seen and examined the patient, performed the documentation and the assessment and plan as written. Number of minutes spent on the visit: 10.
[2022-04-24] MEDS ORDERED: LEVOTHYROXINE 137 MCG TAB PO SCH (06:30)
--- NOTE | 2022-04-24 06:30 | XR ---
EXAMINATION TYPE: XR chest 2V DATE OF EXAM: 04/24/2022 COMPARISON: Chest x-ray one day earlier and older studies. HISTORY: Right-sided pneumothorax. TECHNIQUE: Frontal and lateral views of the chest are obtained. FINDINGS: There is stable small right apical pneumothorax. Background chronic emphysematous and pulm onary fibrotic changes bilaterally are redemonstrated. Persistent small to tiny bilateral pleural eff usions. No new focal airspace opacity. The cardiac silhouette size is stable and within normal limits . The osseous structures are intact. Overlying EKG leads redemonstrated. IMPRESSION: Stable small right apical pneumothorax estimated at just over 5%. No significant change from one day earlier.
[2022-04-24] MEDS: IPRATROPIUM-ALBUTEROL 3 ML NEB INHALATION SCH ×2 (08:45→12:15)
--- NOTE | 2022-04-24 08:49 | PN ---
PROGRESS NOTE CHIEF COMPLAINT: Shortness of breath. HISTORY OF PRESENT ILLNESS: This lady is doing fairly well. The pneumothorax is not expanded. She is not having any chest pain. PHYSICAL EXAMINATION: CHEST: Breath sounds are quite good on both sides. CARDIAC: Normal. ABDOMEN: Soft, nontender. IMPRESSION: 1. Right-sided pneumothorax. 2. Chronic obstructive pulmonary disease. 3. Non ST elevation myocardial infarction. PLAN: Progress activity and wait for further guidance from Pulmonology and Cardiology. Her EF at the present time is 30% to 40%. MMODL / IJN: [id number] /
[2022-04-24] MEDS: METOPROLOL SUCCINATE (ER) 25 MG TAB.ER.24H PO SCH (08:57)
[2022-04-24] MEDS: AZITHROMYCIN 500 MG TAB PO SCH (08:58)
[2022-04-24] MEDS: CLOPIDOGREL 75 MG TAB PO SCH (08:58)
[2022-04-24] MEDS ORDERED: ASPIRIN 81 MG PO SCH (09:00)
--- NOTE | 2022-04-24 09:38 | CDI ---
Documentation Clarification Form Date: 04/24/2022 09:23:23 AM From: Shahla Abbasi CCS, CCDS Admit Date: 04/21/2022 09:41:00 PM Patient Name: Beatriz Orozco Visit Number: [id number] Discharge Date: ATTENTION: The Clinical Documentation Specialists (CDI) and [facility] Coding Staff appreciate your assistance in clarifying documentation. Please respond to the clarification below the line at the bottom and electronically sign. The CDI & [facility] Coding staff will review the response and follow-up if needed. Please note: Queries are made part of the Legal Health Record. If you have any questions, please contact the author of this message via ITS. Dr. Coleman Medina: Per the 04/21 ED Note, the patient complained of cough, dyspnea and wheezes. On exam, in respiratory distress, wheezing, accessory muscle use & decreased breath sounds. PO 88 room air. Based on this information and the findings below, is there an additional diagnosis that is clinically appropriate for this patient? History/Risk Factors per the 04/22 H/P: Unremarkable. Per the 04/22 Pulmonary Consult: COPD with Emphysema on CT Chest, Chronic & ongoing tobacco dependence, Hypothyroidism, Vit D Deficiency. Clinical Indicators: Presented to the ED on 04/21 with SOB, worse than her usual COPD symptoms for 2 days, no fever or chills, had occasional nonproductive cough, some upper chest discomfort. Home meds include INH Proair, INH Trelegy Ellipta and Synthroid. Admit with NSTEMI, COPD Exacerbation, Spontaneous Pneumothorax, Lactic Acidosis. 04/21 VS: T 97, P 123, R 32, BP 107/68, PO 88 RA - 95 3Lnc. BMI: 16.4 04/21 LAB: WBC 15.8, Neutrophils 13.5; D Dimer 1.14; Na 136, Chloride 96, CO2 31, Glucose 220, Lactic Acid 3.5, 2.3, 2.0; AST 61, ALT 47, Troponin 0.826, 0.799; Blood Gas: VBG HCO3 30 04/21 CXR: Lucency noted at the right lung apex consistent with small pneumothorax. No evidence for tension physiology. Better characterized on subsequent CTA chest. Emphysematous changes. Suspected 3mm pulmonary nodule in right lung. 04/21 CT Chest: Concern for early/developing pneumonia. Sm 8mm oval nodule in RUL, additional subcentimeter nodules in RML and LLL. Small nodular consolidation in right lung concerning for early vs developing pneumonia. Small right pneumothorax. Moderate-severe emphysematous bilaterally. Treatment 04/21: Telemetry, Blood cultures, O2 3-4Lnc, INH Duoneb 3ml x1, po Prednisone 40 mg x1, IV Rocephin 50 mls @ 100 mls/hr x1, IV Azithromycin 250 mls @ 250 mls/hr x1, IV Na Chl 1,000 mls @ 130 mls/hr q7H, IV Na Chl 500 mls @ 1000 mls/hr q30M, INH Duoneb 3ml q2H/prn. Is there an additional diagnosis that is clinically appropriate for this patient? [ ] Acute Hypoxic Respiratory Failure [ ] Acute Hypercapnic Respiratory Failure [ ] Acute on Chronic Hypoxic Respiratory Failure [ ] Acute on Chronic Hypercapnic Respiratory Failure [ ] Chronic Hypoxic Respiratory Failure [ ] Chronic Hypercapnic Respiratory Failure [ ] Acute Respiratory Insufficiency [ ] Other Diagnosis, please specify: [ x ] Unable to determine (Template Last Revised: August 2020) MTDD
--- NOTE | 2022-04-24 09:59 | P.PN ---
Subjective Progress Note Date: 04/24/22 Principal diagnosis: Spontaneous right-sided pneumothorax, non-ST elevated myocardial infarction, !00% stenosis to her right coronary artery with collateral circulation, Takotsubo cardiomyopathy with an ejection fraction of 30-40%. History of COPD, asthma, current tobacco dependence, thyroid disorder, osteoarthritis, obsessive- compulsive disorder, recent fall from standing with injury to left wrist The patient was seen and examined sitting up in bed on the cardiac stepdown unit in no acute distress. She is mildly short of breath although states she just walked back from the bathroom. Remains on 2 L nasal cannula although oxygen saturation 96%. Only able to achieve 500 mL on incentive spirometry, she does take much deeper breaths when not using the incentive spirometer. Chest x-ray reviewed this morning, no increased pneumothorax, remains stable. No other new concerns. Objective - Vital Signs Vital signs: Vital Signs Temp 98.2 F 04/24/22 03:10 Pulse 117 H 04/24/22 09:01 Resp 20 04/24/22 03:10 BP 124/73 04/24/22 03:10 Pulse Ox 93 L 04/24/22 09:01 FiO2 28 04/23/22 20:24 Intake & Output 04/23/22 04/24/22 04/24/22 18:59 06:59 18:59 Intake Total 118 0 Balance 118 0 Intake: Oral 118 0 Other: Voiding Method Toilet Toilet # Voids 1 # Bowel Movements 1 - Exam CONSTITUTIONAL: Appears comfortable, cooperative, no acute distress RESPIRATORY: Lungs sounds diminished bilaterally. Respirations even, nonlabored. Currently on 2 L nasal cannula with oxygen saturation 96%. Able to achieve 500 mL on incentive spirometry. Strong cough. CARDIOVASCULAR: S1, S2 present. Regular rate and rhythm, sinus rhythm on telemetry. Palpable peripheral pulses bilaterally. No edema present GASTROINTESTINAL: Abdomen soft, nontender, nondistended. Active bowel sounds present 4 quadrants. Tolerating diet. GENITOURINARY: Continues to void INTEGUMENTARY: Skin is warm and dry NEUROLOGIC: Cranial nerves II through XII intact MUSKULOSKELETAL: Able to move all extremities, strength equal bilaterally PSYCHIATRIC: Alert and oriented to person place and time, appropriate affect, intact judgment and insight - Allied health notes Allied health notes reviewed: nursing - Labs CBC & Chem 7: 04/23/22 09:55 04/23/22 09:55 Labs: Abnormal Lab Results - Last 24 Hours (Table) 04/23/22 04/23/22 Range/Units 09:55 09:55 Neutrophils # 8.1 H (1.3-7.7) k/uL Lymphocytes # 0.7 L (1.0-4.8) k/uL Carbon Dioxide 31 H (22-30) mmol/L Glucose 104 H (74-99) mg/dL Calcium 7.6 L (8.4-10.2) mg/dL Microbiology - Last 24 Hours (Table) 04/21/22 20:00 Blood Culture - Preliminary Blood No Growth after 48 hours 04/21/22 19:40 Blood Culture - Preliminary Blood No Growth after 48 hours - Imaging and Cardiology Chest x-ray: report reviewed, image reviewed Assessment and Plan Assessment: 1. Spontaneous right-sided pneumothorax 2. Non-ST elevated myocardial infarction this admission, status post heart catheterization which demonstrated 100% stenosis to her right coronary artery with collateral circulation, 30-40% stenosis of her left anterior descending coronary artery. 3. Takotsubo cardiomyopathy with ejection fraction of 30-40% 4. Chronic obstructive pulmonary disease 5. History of asthma 6. Chronic ongoing tobacco dependence, smokes 1 pack of cigarettes daily 7. Thyroid disorder 8. Osteoarthritis 9. Obsessive-compulsive disorder 10. Recent fall from standing, with injury to left wrist Plan: 1. Continue to monitor chest x-rays for resolution of stable right apical pneumothorax. No surgical intervention, no chest tube placement warranted 2. Wean O2 as tolerated, encourage use of her incentive spirometry 10 times every hour while awake, bronchodilator per pulmonology 3. Smoking cessation counseling and education offered, patient should cease smoking completely 4. Increase activity as tolerated. Out of bed for all meals. 5. Will continue to monitor and make recommendations as appropriate
[2022-04-24 12:04] VITALS: BP 120/64; RESP 21; TEMP 97.6
[2022-04-24 12:26] VITALS: PULSE 98
--- NOTE | 2022-04-24 13:28 | P.PN ---
Subjective This is a pleasant 61-year-old female past medical history significant for chronic nicotine dependence, hypothyroidism, COPD, asthma. She does not follow with a development consultant. We have been asked to see in consultation for elevated troponin. Patient is sensitive emergency department with worsening shortness of breath. She states over the past 2 days her symptoms have worsened. However, yesterday specifically she was having worsening shortness of breath all day, worse with activity. She had left sided chest discomfort as well. She had associated diaphoresis. Her pain was non-radiating. No specific alleviating factors. Aggravated by activity. Denies any nausea, vomiting, palpations, lightheadedness, dizziness, syncope or near syncope. She denies a history of CAD, [place], stroke, diabetes, hypertension. Family history includes her mother had an [place] in her 60s. She currently smokes one pack per day, denies any illicit drug use. Occasionally drinks alcohol. Patient's troponins were abnormal concerning for NSTEMI, she underwent cardiac catheterization with Dr. Murdock which revealed coronary artery disease including 100% RCA with left to right and right to right collaterals, 30-40% LAD stenosis. Cardiomyopathy with EF 30-35% with apical hypokinesis, not explained by coronary anatomy consistent with Takotsubo's cardiomyopathy. 04/24/2022 Patient seen and examined at bedside, no acute distress. She denies any chest pain or shortness of breath. Vital signs are stable. Echocardiogram revealed EF of 4045 %, apical anterior and Lateral septal wall hypokinesis. Patient started on low-dose metoprolol and lisinopril. She is currently tolerating his medications. Labs: CBC unremarkable, sodium 138, potassium 4.2, BUN 8, serum creatinine 0.6 PHYSICAL EXAMINATION Vitals reviewed CONSTITUTIONAL: No apparent distress. HEENT: Head is normocephalic. No JVD. CHEST EXAMINATION: Lungs are clear to auscultation. No chest wall tenderness is noted on palpation or with deep breathing. HEART EXAMINATION: Regular rate and rhythm. S1, S2 heard. No murmurs, gallops or rub. ABDOMEN: Soft, nontender. Positive bowel sounds. EXTREMITIES: 2+ peripheral pulses, no lower extremity edema and no calf tenderness. NEUROLOGIC EXAMINATION: Patient is awake, alert and oriented x3. SKIN: right radial cath site clean dry 2+ pulses, no hematoma noted ASSESSMENT Non-ischemic cardiomopathy with apical hypokinesis, not explained by coronary anatomy consistent with Takotsubo's cardiomyopathy Elevated troponin, related to above Coronary artery disease including 100% RCA with left to right and right to right collaterals, 30-40% LAD stenosis Small right sided pneumothorax Chronic nicotine dependence Hypothyroidism COPD History of asthma PLAN Continue aspirin 81 mg daily, metoprolol 12.5 mg daily and lisinopril From a cardiology perspective, patient is stable possible discharge home. Follow up outpatient with Dr. Murdock in 1 week. Nurse practitioner note has been reviewed by physician. Signing provider agrees with the documented findings, assessment, and plan of care. Objective - Vital Signs Vital signs: Vital Signs Temp 98.2 F 04/24/22 03:10 Pulse 117 H 04/24/22 09:01 Resp 20 04/24/22 03:10 BP 124/73 04/24/22 03:10 Pulse Ox 93 L 04/24/22 09:01 FiO2 28 04/23/22 20:24 Intake & Output 04/23/22 04/24/22 04/24/22 18:59 06:59 18:59 Intake Total 118 0 Balance 118 0 Intake: Oral 118 0 Other: Voiding Method Toilet Toilet # Voids 1 # Bowel Movements 1 - Labs CBC & Chem 7: 04/23/22 09:55 04/23/22 09:55 Labs: Abnormal Lab Results - Last 24 Hours (Table) 04/23/22 04/23/22 Range/Units 09:55 09:55 Neutrophils # 8.1 H (1.3-7.7) k/uL Lymphocytes # 0.7 L (1.0-4.8) k/uL Carbon Dioxide 31 H (22-30) mmol/L Glucose 104 H (74-99) mg/dL Calcium 7.6 L (8.4-10.2) mg/dL Microbiology - Last 24 Hours (Table) 04/21/22 20:00 Blood Culture - Preliminary Blood No Growth after 48 hours 04/21/22 19:40 Blood Culture - Preliminary Blood No Growth after 48 hours
--- NOTE | 2022-04-24 14:34 | P.PN ---
Subjective Progress Note Date: 04/24/22 Principal diagnosis: Non-ST segment elevation myocardial infarction This is a pleasant 61-year-old female patient with a known history of chronic obstructive pulmonary disease, chronic and ongoing tobacco dependence, hypothyroidism, vitamin D deficiency. She had presented to the emergency room yesterday with complaints of increasing shortness of breath over 2 days. Some chest discomfort. Occasional dry cough. EKG revealed anteroseptal myocardial infarction of indeterminate age. No acute ST or T wave abnormalities. Chest x- ray revealed evidence of emphysema. Suspected 3 mm pulmonary nodule in the right lung. No focal airspace consolidation or CT angiogram revealed no evidence of pulmonary embolism. Small right pneumothorax. No evidence for tension. Moderate to severe emphysematous changes bilaterally. Troponins 0.7, 0.8 0.4. White count 15.8. Hemoglobin 15.3. D-dimer 1.14. Sodium 136. Potassium 4.8. BUN 9. Creatinine 0.59. Glucose 220. ProBNP 5770. She did undergo cardiac catheterization today that revealed coronary artery disease including 100% RCA occlusion with [id number] and right to right collateral circulation. 30-40% stenosis of the LAD. There was cardiomyopathy with an ejection fraction of 30-35%. Not explained by the coronary anatomy, consistent with Takotsubo cardiomyopathy. She's been initiated on DuoNeb inhalations, p rednisone, empiric antibiotics in the form of azithromycin. The patient is seen today 04/23/2022 in follow-up on the selective care unit. She is currently sitting up at the bedside. Awake and alert in no acute distress. She is maintaining good O2 saturations in the 90s on room air. No chest pain. Chest x-ray reveals a stable right apical pneumothorax. Small nodule in the left upper lobe. Atelectasis of the right lower lobe with a small right pleural effusion. Blood cultures revealed no growth. White count 9.4. Hemoglobin 12.4. Sodium 138. Potassium 4.2. BUN 8. Creatinine 0.61. Reevaluated today on 04/24/22, patient is feeling much better today, breathing a lot easier, denies any cough wheezing shortness of breath denies any chest pain, chest x-ray continues to show evidence of small tiny right apical pneumothorax. Today I will clear the patient to go home on oxygen and on her usual bronchodilators, patient should have outpatient follow-up on her pulmonary nodules and would likely recommend either a follow-up CT of the chest in few months or a PET scan on outpatient basis. Patient was made aware of her abnormal lung nodules and promised to keep appointment with me on outpatient basis. Patient will need to be on home oxygen she does have severe underlying COPD. Objective - Vital Signs Vital signs: Vital Signs Temp 97.6 F 04/24/22 12:00 Pulse 98 04/24/22 12:24 Resp 21 04/24/22 12:00 BP 120/64 04/24/22 12:00 Pulse Ox 94 L 04/24/22 12:00 FiO2 28 04/23/22 20:24 Intake & Output 04/23/22 04/24/22 04/24/22 18:59 06:59 18:59 Intake Total 118 0 Balance 118 0 Weight 38.102 kg Intake: Oral 118 0 Other: Voiding Method Toilet Toilet Toilet # Voids 1 # Bowel Movements 1 - Exam Physical Exam: Revealed a 61-year-old white female, in no distress. Head: Atraumatic normocephalic. HEENT:[Neck is supple.] [No neck masses.] [No thyromegaly.] [No JVD.] Chest: [Diminished breath sound bilaterally no crackles or rhonchi or wheezes Cardiac Exam: [Normal S1 and S2, no S3 gallop, no murmur.] Abdomen: [Soft, nontender, no megaly, no rebound, no guarding, normal bowel sounds.] Extremities: [No clubbing, no edema, no cyanosis.] Neurological Exam: [No focal neurologic deficit.] Alert oriented 3 Psychiatric: Normal mood affect and normal mental status examination. Skin: No rashes - Labs CBC & Chem 7: 04/23/22 09:55 04/23/22 09:55 Labs: Microbiology - Last 24 Hours (Table) 04/21/22 20:00 Blood Culture - Preliminary Blood No Growth after 48 hours 04/21/22 19:40 Blood Culture - Preliminary Blood No Growth after 48 hours Assessment and Plan Assessment: Non-ST segment elevation myocardial infarction, found to have 100% stenosis of the RCA with collateral circulation, 30-40% stenosis of the LAD Takotsubo cardiomyopathy with ejection fraction 30-40% Spontaneous right-sided pneumothorax, follow-up chest x-ray reveals stable right apical pneumothorax Pulmonary nodules largest of which is 8 mm. Acute exacerbation of chronic obstructive pulmonary disease Chronic and ongoing tobacco dependence Hypothyroidism Vitamin D deficiency Recommendation: Discussed and reviewed with the patient her chest x-ray findings today. We'll clear the patient to be discharged home with discharge by other consultants Will need home OXYGEN at 2 L/m Continue bronchodilators Will need outpatient PET scan or possibly repeat CT of the chest in the next few months. This will need to be done for follow-up on her pulmonary nodules. Outpatient follow-up is strongly recommended Time with Patient: Less than 30
[2022-04-24] MEDS: SODIUM CHLORIDE 0.9% 1,000 ML in EMPTY BAG 1 BAG IV SCH (15:06)
[2022-04-24] MEDS ORDERED: ATORVASTATIN 80 MG TAB PO SCH (21:00)
--- NOTE | 2022-04-25 11:32 | DS ---
DISCHARGE SUMMARY CHIEF COMPLAINT: Shortness of breath. HISTORY OF PRESENT ILLNESS AND PHYSICAL EXAMINATION: Details of this lady's history and physical can be found in the initial workup. LABORATORY STUDIES: While she was in the hospital, she had laboratory studies, details of which can be found in the laboratory section of her chart. COURSE IN THE HOSPITAL: After admission, she was placed on bedrest, started on intravenous fluids and seen by Cardiothoracic Surgery because of a 10% right-sided pneumothorax. This did not increase in size. While she is in the hospital, she was found to have an elevated troponin and it turned out that she had an NSTEMI. Catheterization revealed complete occlusion of the right coronary with 30% to 40% occlusion of the LAD. She did well and had no further problems with shortness of breath, chest pain, heart failure, etc. and it was felt she could be discharged on the and she will be seen in the office in several days and she will also be followed up with Cardiology. FINAL DIAGNOSES: 1. Exacerbation of chronic obstructive pulmonary disease. 2. 10% right-sided pneumothorax. 3. Non ST elevation myocardial infarction. 4. Coronary artery disease. OPERATIONS: Cardiac cath. CONSULTATIONS: Cardiology and Thoracic Surgery. She is improved. MMODL / IJN: [id number] /
--- NOTE | 2022-05-03 10:37 | CDI ---
Documentation Clarification Form Date: 05/03/2022 10:32:54 AM From: Shahla RiosAbbasiWARREN ahn, CCDS Admit Date: 04/21/2022 09:41:00 PM Patient Name: Beatriz Orozco Visit Number: [id number] Discharge Date: 04/24/2022 03:35:00 PM ATTENTION: The Clinical Documentation Specialists (CDI) and [facility] Coding Staff appreciate your assistance in clarifying documentation. Please respond to the clarification below the line at the bottom and electronically sign. The CDI & [facility] Coding staff will review the response and follow-up if needed. Please note: Queries are made part of the Legal Health Record. If you have any questions, please contact the author of this message via ITS. Dr. Coleman Medina: Per the 04/21 ED Note, the patient complained of cough, dyspnea and wheezes. On exam, in respiratory distress, wheezing, accessory muscle use & decreased breath sounds. PO 88 room air. Per the 04/24 Progress Note: Patient will need to be on home oxygen, she has severe underlying COPD. Based on this information and the findings below, is there an additional diagnosis that is clinically appropriate for this patient? History/Risk Factors per the 04/22 H/P: Unremarkable. Per the 04/22 Pulmonary Consult: COPD with Emphysema on CT Chest, Chronic & ongoing tobacco dependence, Hypothyroidism, Vit D Deficiency. Clinical Indicators: Presented to the ED on 04/21 with SOB, worse than her usual COPD symptoms for 2 days, no fever or chills, had occasional nonproductive cough, some upper chest discomfort. Home meds include INH Proair, INH Trelegy Ellipta and Synthroid. Admit with NSTEMI, COPD Exacerbation, Spontaneous Pneumothorax, Lactic Acidosis. 04/21 VS: T 97, P 123, R 32, BP 107/68, PO 88 RA - 95 3Lnc. BMI: 16.4 04/21 LAB: WBC 15.8, Neutrophils 13.5; D Dimer 1.14; Na 136, Chloride 96, CO2 31, Glucose 220, Lactic Acid 3.5, 2.3, 2.0; AST 61, ALT 47, Troponin 0.826, 0.799. Blood Gas: VBG HCO3 30 04/21 CXR: Lucency noted at the right lung apex consistent with small pneumothorax. No evidence for tension physiology. Better characterized on subsequent CTA chest. Emphysematous changes. Suspected 3mm pulmonary nodule in right lung. 04/21 CT Chest: Concern for early/developing pneumonia. Sm 8mm oval nodule in RUL, additional subcentimeter nodules in RML and LLL. Small nodular consolidation in right lung concerning for early vs developing pneumonia. Small right pneumothorax. Moderate-severe emphysematous bilaterally. Treatment 04/21: Telemetry, Blood cultures, O2 3-4Lnc, INH Duoneb 3ml x1, po Prednisone 40 mg x1, IV Rocephin 50 mls @ 100 mls/hr x1, IV Azithromycin 250 mls @ 250 mls/hr x1, IV Na Chl 1,000 mls @ 130 mls/hr q7H, IV Na Chl 500 mls @ 1000 mls/hr q30M, INH Duoneb 3ml q2H/prn. Please clarify the etiology of respiratory distress, if known: [ ] Acute Respiratory Distress [ ] Chronic Respiratory Failure, please specify type [ ] Other, please specify [ x ] Unable to determine (Template Last Revised: August 2020) MTDD
== END 2022-04-24 15:35 | disposition home or self-care (01) | DRG 199 ==
LOC: EC 17:24 → 3SCARD 21:41
PROVIDERS: ADMIT Family Medicine; ATTEND Family Medicine
DX: J93.83 Other pneumothorax (principal); I21.4 Non-ST elevation (NSTEMI) myocardial infarction; E87.20 Acidosis, unspecified; I51.81 Takotsubo syndrome; J98.11 Atelectasis; I25.10 Atherosclerotic heart disease of native coronary artery without angina pectoris; F17.210 Nicotine dependence, cigarettes, uncomplicated; E03.9 Hypothyroidism, unspecified; M19.90 Unspecified osteoarthritis, unspecified site; R06.03 Acute respiratory distress; F42.9 Obsessive-compulsive disorder, unspecified; W18.30XD Fall on same level, unspecified, subsequent encounter; R91.1 Solitary pulmonary nodule; J43.9 Emphysema, unspecified; Z71.6 Tobacco abuse counseling; E55.9 Vitamin D deficiency, unspecified; S62.102D Fracture of unspecified carpal bone, left wrist, subsequent encounter for fracture with routine healing; Z79.02 Long term (current) use of antithrombotics/antiplatelets; Z79.82 Long term (current) use of aspirin; Z79.890 Hormone replacement therapy; Z79.899 Other long term (current) drug therapy; Z79.51 Long term (current) use of inhaled steroids; Z82.49 Family history of ischemic heart disease and other diseases of the circulatory system; Z71.3 Dietary counseling and surveillance
CPT/HCPCS: 36415; 71045; 71046; 71275; 80048; 80053; 80061; 82803; 83605; 83721; 83735; 83880; 84484; 85025; 85379; 85610; 85730; 87040; 93005; 93306; 93458; 94640; 94760; 96361; 96365; 96367; 96375; 99291

== ENCOUNTER → 2023-04-08 | Outpatient (CLI) | payer OTHER ==
--- NOTE | 2023-04-09 08:52 | MM ---
Reason for Exam: Screening (asymptomatic). Last mammogram was performed 1 year(s) and 1 month(s) ago. Patient History: Menarche at age 12. First Full-Term at age 26. Postmenopausal. Risk Values: Jenni 5 year model risk: 1.7%. NCI Lifetime model risk: 7.4%. Prior Study Comparison: 01/26/2019 Bilateral Screening Mammogram, [facility]. 03/07/2022 Bilateral MG 3D screening mammo w/cad, [facility]. 03/12/2022 Left MG 3D work up w/cad LT, [facility]. Tissue Density: The breast tissue is heterogeneously dense. This may lower the sensitivity of mammography. Findings: Analyzed By CAD. Asymmetric density inner upper left breast 3.8 cm in the nipple. Additional views are recommended. No suspicious calcifications within either breast. Vascular calcifications seen bilaterally. Overall Assessment: Incomplete: need additional imaging evaluation, BI-RAD 0 Management: Diagnostic Mammogram of the left breast. . Patient should continue monthly self-breast exams. A clinical breast exam by your physician is recommended on an annual basis. This exam should not preclude additional follow-up of suspicious palpable abnormalities. Note on Jenni scores and lifetime risk: 1. A Jenni score greater than 3% is considered moderate risk. If this is the case, consider specialist referral to assess eligibility for a risk reducing agent. 2. If overall lifetime risk for the development of breast cancer is 20% or higher, the patient may qualify for future screening with alternating mammogram and breast MRI. Electronically signed and approved by: Ranjit Mccabe M.D. Radiologis
== END | disposition home or self-care (01) ==
LOC: RADMAMWWP 13:26
PROVIDERS: ATTEND Family Medicine
DX: Z12.31 Encounter for screening mammogram for malignant neoplasm of breast (principal); Z78.0 Asymptomatic menopausal state
CPT/HCPCS: 77063; 77067

== ENCOUNTER → 2023-04-11 | Outpatient (CLI) | payer OTHER ==
--- NOTE | 2023-04-11 09:17 | MM ---
Reason for Exam: Additional evaluation requested from prior study. Last screening mammogram was performed less than 1 month ago. Patient History: Menarche at age 12. First Full-Term at age 26. Postmenopausal. Risk Values: Jenni 5 year model risk: 1.7%. NCI Lifetime model risk: 7.4%. Prior Study Comparison: 03/07/2022 Bilateral MG 3D screening mammo w/cad, [facility]. 03/12/2022 Left MG 3D work up w/cad LT, [facility]. 04/08/2023 Bilateral MG 3D screening mammo w/cad, [facility]. Tissue Density: Left: The breast tissue is heterogeneously dense. This may lower the sensitivity of mammography. Findings: Analyzed By CAD. Focal asymmetry in the left breast was not reproducible with compression. No suspicious calcifications. Overall Assessment: Benign, BI-RAD 2 Management: Screening Mammogram of both breasts in 1 year. A clinical breast exam by your physician is recommended on an annual basis and results should be correlated with mammographic findings. This exam should not preclude additional follow-up of suspicious palpable abnormalities. Results were given to the patient verbally at the time of exam. Note on Jenni scores and lifetime risk: 1. A Jenni score greater than 3% is considered moderate risk. If this is the case, consider specialist referral to assess eligibility for a risk reducing agent. If overall lifetime risk for the development of breast cancer is 20% or higher, the patient may qualify for future screening with alternating mammogram and breast MRI. Electronically signed and approved by: Hector Castro D.O.
== END | disposition home or self-care (01) ==
LOC: RADMAMWWP 08:44
PROVIDERS: ATTEND Family Medicine
DX: R92.332 Mammographic heterogeneous density, left breast (principal); Z78.0 Asymptomatic menopausal state
CPT/HCPCS: 77065; G0279; 77061

== ENCOUNTER → 2024-04-22 | Outpatient (CLI) | payer BC ==
--- NOTE | 2024-04-29 13:23 | MM ---
Reason for Exam: Screening (asymptomatic). Last mammogram was performed 1 year(s) and 1 month(s) ago. Patient History: Menarche at age 12. First Full-Term at age 26. Postmenopausal. Risk Values: Jenni 5 year model risk: 1.8%. NCI Lifetime model risk: 7.2%. Prior Study Comparison: 03/12/2022 Left MG 3D work up w/cad LT, [facility]. 04/08/2023 Bilateral MG 3D screening mammo w/cad, [facility]. 04/11/2023 Left MG 3D work up w/cad LT, [facility]. Tissue Density: There are scattered areas of fibroglandular density. Findings: Analyzed By CAD. Right breast: There is no suspicious group of microcalcifications or new suspicious mass. Benign-appearing calcifications right breast. Left breast: There is no suspicious group of microcalcifications or new suspicious mass. Benign-appearing calcifications left breast. Overall Assessment: Benign, BI-RAD 2 Management: Screening Mammogram of both breasts in [address] [facility] will attempt to contact patient to return for supplemental views and ultrasound if indicated. Patient should continue monthly self-breast exams. A clinical breast exam by your physician is recommended on an annual basis. This exam should not preclude additional follow-up of suspicious palpable abnormalities. Note on Jenni scores and lifetime risk: 1. A Jenni score greater than 3% is considered moderate risk. If this is the case, consider specialist referral to assess eligibility for a risk reducing agent. 2. If overall lifetime risk for the development of breast cancer is 20% or higher, the patient may qualify for future screening with alternating mammogram and breast MRI. [facility], , 04/29/2024 1:20 PM. Electronically signed and approved by: Levon Villalpando DO
== END | disposition home or self-care (01) ==
LOC: RADMAMWWP 16:26
PROVIDERS: ATTEND Family Medicine
DX: Z12.31 Encounter for screening mammogram for malignant neoplasm of breast (principal); R92.323 Mammographic fibroglandular density, bilateral breasts; Z78.0 Asymptomatic menopausal state
CPT/HCPCS: 77063; 77067